=== PATIENT | male | born 1970 | race Hispanic/Latino ===

== ENCOUNTER 2017-04-30 23:40 | Inpatient (IN) | payer MEDICAID, OTHER ==
--- NOTE | 2017-05-01 00:13 | C.PDOC ---
History Of Present Illness 47 year old male presents to the ED as a transfer from [facility] for psychiatric admission. Patient has history of COPD. Patient has no complaints at this time. Chief Complaint (Nursing): Psychiatric Evaluation History Per: Patient History/Exam Limitations: no limitations Onset/Duration Of Symptoms: Hrs Current Symptoms Are (Timing): Still Present Involuntary Hold By: None Recent travel outside of the [place]: No Additional History Per: Patient Past Medical History Reviewed: Historical Data, Nursing Documentation, Vital Signs Vital Signs: Last Vital Signs Temp 98.1 F 04/30/17 23:44 Pulse 71 04/30/17 23:44 Resp 20 04/30/17 23:44 BP 143/70 04/30/17 23:44 Pulse Ox 97 05/01/17 00:22 - Medical History PMH: COPD, Rheumatoid Arthritis Surgical History: No Surg Hx Family History: States: Unknown Family Hx - Social History Hx Alcohol Use: No Hx Substance Use: Yes - Immunization History Hx Tetanus Toxoid Vaccination: No Hx Influenza Vaccination: No Hx Pneumococcal Vaccination: No Physical Exam - Physical Exam Appears: Non-toxic, No Acute Distress Skin: Normal Color, Warm, Dry Head: Atraumatic, Normacephalic Eye(s): bilateral: Normal Inspection Oral Mucosa: Moist Neck: Supple Chest: Symmetrical, No Deformity, No Tenderness Cardiovascular: Rhythm Regular, No Murmur Respiratory: No Decreased Breath Sounds, No Rales, No Rhonchi, Wheezing ( occasional ), Other (good air entry ) Gastrointestinal/Abdominal: Soft, No Tenderness, No Guarding, No Rebound Extremity: Normal ROM, Capillary Refill (less than 2 seconds ) Neurological/Psych: Oriented x3, Normal Speech, Normal Cognition Gait: Steady ED Course And Treatment O2 Sat by Pulse Oximetry: 97 (on RA) Pulse Ox Interpretation: Normal Disposition Discussed With : Brigid Rubio Doctor Will See Patient In The: Hospital Counseled Patient/Family Regarding: Diagnosis - Disposition Disposition: HOSPITALIZED Disposition Time: 00:12 Condition: STABLE Forms: [facility] (Tajik) - POA Present On Arrival: None - Clinical Impression Clinical Impression: Depressive disorder, Asthma - Scribe Statement The provider has reviewed the documentation as recorded by the Scribe (Blanca Beltran) Provider Attestation: All medical record entries made by the Scribe were at my direction and personally dictated by me. I have reviewed the chart and agree that the record accurately reflects my personal performance of the history, physical exam, medical decision making, and the department course for this patient. I have also personally directed, reviewed, and agree with the discharge instructions and disposition.
--- NOTE | 2017-05-01 01:24 | PCM.BM ---
<JeyOlena Garcia - Last Filed: 05/01/17 01:22> Treatment Plan Problems - Problems identified on initial assessmt Depression Date Initiated: 05/01/17 Time Initiated: 00:45 Assessment reference: NA Status: Active Treatment assets and liabiliti Patient Assests: cooperative, educated, ADL independent, negotiates basic needs Patient Liabilities: financial problems, poor support system, substance abuse, medical problems - Milieu Protocol Maintain good personal hygiene: daily Encourage regular showers, daily Remind patient to perform daily oral care, other Assist patient to perform ADL's (Self) Conduct patient checks and document Observation sheet: Q15 minutes Maintain personal safety: every shift Educate patient to report safety concerns to staff, every shift Monitor environment for contraband/sharps Medication safety: Monitor for expected outcome, potential side effects: every shift, Assess barriers to learning: every shift, Assess readiness for medication education: every shift <Lucy Espinal - Last Filed: 05/01/17 13:05> - Diagnosis (1) Depressive disorder Status: Acute Interventions: 05/01/17 13:06 * Assess/adjust medications daily and /or as needed * See patient on an individual basis 7x/week to assess symptoms of depression * Monitor for side effects & effectiveness of medications * (2) Opioid use disorder, severe, dependence Status: Acute Interventions: 05/01/17 13:07 * Assess 7x/week regarding severity of withdrawal * Educate regarding risks, benefits, side effects and alternatives of medications * Use Motivational Interviewing for abstinence * Use CBT for relapse prevention * Medication management for withdrawal symptoms * Encourage medication assisted treatment * <Boris Enriquez - Last Filed: 05/02/17 12:20> - Diagnosis (1) Major depressive disorder, recurrent severe without psychotic features Status: Acute Interventions: Assess/adjust medications daily and/or as needed SEE patient on him individual basis 7x/week to assess status of hallucinations. Discuss risks, benefits, side effects and alternatives of medications. 05/02/17 12:18 (2) YOUSUF (generalized anxiety disorder) Status: Acute Interventions: Assess/adjust medications daily and/or as needed SEE patient on him individual basis 7x/week to assess status of hallucinations. Discuss risks, benefits, side effects and alternatives of medications. 05/02/17 12:19 (3) Opiate dependence Status: Acute Interventions: Assess 7x/week regarding severity of withdrawal Educated regarding risks, benefits, side effects and alternatives of medications Used motivational interview for abstinence Used CBT for relapse prevention Medication management for withdrawal symptoms Encouraged medication assisted treatment 05/02/17 12:20 (4) Sedative, hypnotic or anxiolytic use disorder, severe, dependence Status: Acute Interventions: Assess 7x/week regarding severity of withdrawal Educated regarding risks, benefits, side effects and alternatives of medications Used motivational interview for abstinence Used CBT for relapse prevention Medication management for withdrawal symptoms Encouraged medication assisted treatment 05/02/17 12:20 (5) Cocaine use disorder, moderate, dependence Status: Acute Interventions: Assess 7x/week regarding severity of withdrawal Educated regarding risks, benefits, side effects and alternatives of medications Used motivational interview for abstinence Used CBT for relapse prevention Medication management for withdrawal symptoms Encouraged medication assisted treatment 05/02/17 12:21 <Miya Adorno - Last Filed: 05/05/17 13:45> Family Contact Family involvement: Famliy/SO not involved - Goals for Treatment Patient goals for treatment: "I want to go to rehab." Discharge/Continuing Care - Education Needs Education Needs: Patient Medication, Patient Coping Skills, Patient Placement options, Patient Community resources - Discharge Discharge Criteria: Tolerates medication w/o severe side effects, No longer exhibiting s/s of withdrawal, Reduction of target symptoms Discharge to:: Substance Abuse Rehab - Treatment Team Participation Discussed with Family/SO: No Was Patient/Family/SO present at Treatment Team Meeting: Yes
[2017-05-01] MEDS: Albuterol-Ipratrop 3 mg / 0.5 (3 ml) UD INH SCH ×3 (02:23→20:09)
[2017-05-01] MEDS: Multiple Vitamins Tab PO SCH (10:19)
--- NOTE | 2017-05-01 13:11 | PCM.PSYCH ---
Initial Psychiatric Evaluation - Initial Psychiatric Evaluation Type of Admission: Voluntary Legal Status: Capacity Chief Complaint (in patient's own words): "I'm depressed" History of Present Illness and Precipitating Events: The patient is seen, chart reviewed and case discussed. This is a 47-year-old male, single with one child who is 10 years old and lives with his mother. The patient is unemployed and homeless currently and his transferred from [facility]. He reports depressive symptoms, suicidal thoughts with a plan to OD on medications but he contracts for safety and increased to follow his safety plan. He will talk to the nurses if he feels overwhelmed. He also reports excessive anxiety, anhedonia, somewhat hopelessness and poor sleep/appetite. Patient admits to using 20 bags of intranasal heroin the last 7 years. He also uses intranasal or crack cocaine, occasional cigarettes, 30 mg of OxyContin but not every day. He denies alcohol use and other drug use. He has been abusing Xanax 3-4 mg but he also said he has a prescription for it. Currently he isn't obvious opioid withdrawal. He had been to detox and rehabilitation in the past but not much and he was on methadone 100 mg maintenance but it was stopped. Past psych history: No admissions but he overdosed intentionally on harrowing couple of times. Family psych history: Brother also uses heroin Medical history: Asthma, COPD, rheumatoid arthritis Current Medications: Active Medications Generic Name Dose Route Start Last Admin Trade Name Freq PRN Reason Stop Dose Admin Albuterol/Ipratropium 3 ml 05/01/17 02:00 05/01/17 12:04 Duoneb 3 Mg/0.5 Mg (3 Ml) Ud INH 05/02/17 10:00 Not Given RQ6 THOM Benztropine Mesylate 2 mg 05/01/17 00:18 Cogentin PO Q6 PRN Extra Pyramidal Symptoms Chlordiazepoxide 25 mg 05/01/17 12:00 05/01/17 12:08 Librium PO 05/05/17 11:59 25 mg Q6 THOM Administration Taper Clonidine HCl 0.1 mg 05/01/17 00:18 05/01/17 12:08 Catapres PO 0.1 mg Q8 PRN Administration COWS Score More or Equal to 5 Haloperidol 5 mg 05/01/17 00:26 Haldol PO Q8H PRN for severe agitation Haloperidol Lactate 5 mg 05/01/17 00:34 Haldol IM Q8 PRN Moderate Agitation Hydroxyzine HCl 25 mg 05/01/17 00:18 05/01/17 01:13 Atarax PO 25 mg Q6 PRN Administration Anxiety Ibuprofen 400 mg 05/01/17 00:38 05/01/17 01:13 Motrin Tab PO 400 mg Q6 PRN Administration Pain, moderate (4-7) Loperamide HCl 2 mg 05/01/17 00:38 05/01/17 01:13 Imodium PO 2 mg Q8 PRN Administration Diarrhea Methadone HCl 25 mg 05/01/17 09:45 05/01/17 10:18 Methadone PO 05/06/17 09:44 25 mg Q24H THOM Administration Taper Multivitamins 1 tab 05/01/17 10:00 05/01/17 10:19 Hexavitamin PO 1 tab DAILY THOM Administration Ondansetron HCl 4 mg 05/01/17 00:40 Zofran Tab PO Q8 PRN Nausea/Vomiting Ondansetron HCl 4 mg 05/01/17 00:42 Zofran Inj IVP Q6 PRN Nausea/Vomiting Pneumococcal Polyvalent Vaccine 0.5 ml 05/04/17 10:00 Pneumovax 23 Vaccine IM 05/04/17 10:01 .ONCE ONE Sertraline HCl 50 mg 05/01/17 10:00 05/01/17 12:10 Zoloft PO 50 mg DAILY THOM Administration Past Psychiatric History - Past Psychiatric History Previous Treatment History: None Pertinent Medical Hx (Current Medical&Sleep Prob, Allergies): Allergies Allergy/AdvReac Type Severity Reaction Status Date / Time No Known Allergies Allergy Verified 04/30/17 23:50 ALPRAZolam [Xanax] 1 mg PO TID 04/30/17 Albuterol 0.083% [Albuterol 0.083% Inhal Gabi (2.5 mg/3 ml) UD] 2.5 mg IH Q6 PRN 04/30/17 Albuterol HFA [Ventolin HFA 90 mcg/actuation (8 g)] 2 puff IH [id number] PRN Oxycodone HCl/Acetaminophen [Primlev 10-300 mg Tablet] 1 each PO TID 04/30/17 Review of Systems - Neurological Neurological: UNREMARKABLE - Psychiatric Psychiatric: Abnormal Sleep Pattern, Anhedonia, Anxiety, Behavioral Changes, Change in Appetite, Depression, Difficulty Concentrating, Irritability. absent : Hallucinations, Homicidal Ideation, Paranoia, Suicidal Ideation Mental Status Examination - Personal Presentation Personal Presentation: Looks stated age - Affect Affect: Constricted - Motor Activity Motor Activity: Calm - Reliability in Providing Information Reliability in Providing Information: Good - Speech Speech: Organized - Mood Mood: Depressed, Anxious - Formal Thought Process Formal Thought Process: No Impairment - Cognitive Functions Orientation: Person, Place, Situation, Time Sensorium: Alert Attention/Concentration: Attentive Estimate of Intelligence: Average Judgement: Intact, as evidence by: Insight regarding need for hospitalization Memory: Recent intact, as evidence by: Ability to recall events of the day, Remote intact, as evidenced by: Abilit to recall sig. life events DSM 5 DX - DSM 5 DSM 5 Diagnosis: Major depressive disorder, recurrent, severe, without psychosis YOUSUF Rule out personality disorder Opioid use disorder, severe Opioid withdrawal Cocaine use disorder, moderate Sedative, hypnotic or anxiolytic use disorder, severe RA Asthma COPD - Recommended/Plan of Treatment Treatment Recommendations and Plan of Treatment: Depression and YOUSUF Start Zoloft Attend groups and activities Individual therapy Psychoeducation and support Encourage compliance with meds and after care Refer to outpatient program Teach healthy lifestyle methods, i.e. diet, exercise, meditation Smoking cessation Opioids: Methadone detox As needed medications Gabapentin for augmentation Attend groups and activities Supportive therapy and psychoeducation IA for abstinence CBT for relapse prevention Encourage MAT Refer to rehab or IOP Attend self-help groups as well 34 min Projected ELOS: 5-6 days Prognosis: good w treatment - Smoking Cessation Smoking Cessation Initiated: Yes
[2017-05-02] MEDS: Albuterol-Ipratrop 3 mg / 0.5 (3 ml) UD INH SCH ×3 (02:05→10:36)
[2017-05-02] MEDS: Multiple Vitamins Tab PO SCH (10:34)
--- NOTE | 2017-05-02 12:24 | PCM.PYCHPN ---
Psychiatric Progress Note - Psychiatric Progress Note Patient seen today, length of contact: 15 minutes Patient Chief Complaint: I'm not feeling better. Problems Identified/Issues Discussed: Patient seen. Chart reviewed. Case discussed with the staff. Issues related to illness and treatment were discussed with the patient. Reported compliant with treatment with no adverse affects. Tolerating treatment very well. Reported not feeling much better. Patient got methadone 20 mg. Still requesting height dose of methadone. Education provided. At the time of evaluation, patient was awake alert oriented 3, had no delusions , no auditory or visual hallucinations, no suicidal ideations or homicidal ideations. Medical Problems: None reported Diagnostic Results: Reviewed DSM 5 Symptoms Update: Some improvement with treatment Medication Change: No Medical Record Reviewed: Yes Mental Status Examination - Cognitive Function Orientation: Person, Place, Situation, Time Memory: Intact Attention: WNL Concentration: WNL Association: WNL Fund of Knowledge: [facility] Decription of patient's judgement and insights: Fair - Mood Mood: Depressed - Affect Affect: Depressed - Speech Speech: Appropriate - Formal Thought Process Formal Thought Process: No Impairment Psychotic Thoughts and Behaviors: None - Suicidal Ideation Suicidal Ideation: No - Homicidal Ideation Homicidal Ideation: No Goal/Treatment Plan - Goal/Treatment Plan Need for Continued Stay: Remain at risks for inpatient hospitalization, Discharge may exacerbated symptoms, Severe functional impairment Progress Toward Problem(s) and Goals/Treatment Plan: Patient education Supportive therapy Continue treatment as before Motivation interview for abstinence CPT for relapse prevention Estimated Date of D/C: 05/08/17 - Smoking Cessation Smoking Cessation Initiated: No
[2017-05-03] MEDS: Multiple Vitamins Tab PO SCH (09:36)
[2017-05-03] MEDS: Albuterol-Ipratrop 3 mg / 0.5 (3 ml) UD INH SCH ×2 (09:39→20:14)
--- NOTE | 2017-05-03 20:40 | PCM.PYCHPN ---
Psychiatric Progress Note - Psychiatric Progress Note Patient seen today, length of contact: 15 minutes Patient Chief Complaint: I need methadone Problems Identified/Issues Discussed: Patient was seen. Chart was reviewed important content noted. Nurse input received. Patient is preoccupied with methadone and has drug seeking behavior. He was constantly asking more Methadone. He has psychosomatic complaints. He needs redirection multiple times. No events overnight. Patient slept well and is eating well. Pt needs to stay in hospital for stabilization of mood and detox of opioids. Pt still had opioid withdrawal symptoms, but not evident on observation. Denies suicidal or homicidal ideation. Patient does not report hallucinations. No delusions elicited. No paranoia elicited. Patient has remained in good clinical and behavioral control. Diagnostic Results: reviewed DSM 5 Symptoms Update: MDD Opioid use d/o Medication Change: Yes (methadone taper) Medical Record Reviewed: Yes Mental Status Examination - Cognitive Function Orientation: Person, Place, Situation, Time Memory: Intact Attention: WNL Concentration: WNL Association: WNL Fund of Knowledge: WNL - Mood Mood: Depressed - Affect Affect: Depressed - Speech Speech: Appropriate - Formal Thought Process Formal Thought Process: No Impairment - Suicidal Ideation Suicidal Ideation: No - Homicidal Ideation Homicidal Ideation: No Goal/Treatment Plan - Goal/Treatment Plan Need for Continued Stay: Remain at risks for inpatient hospitalization, Discharge may exacerbated symptoms, Severe functional impairment Progress Toward Problem(s) and Goals/Treatment Plan: Continue current management and medications. Methadone taper Attend groups and activities Individual therapy Patient educated about risks, benefits, side effects & alternatives of meds. Pt verbalized understanding & agreed with the above. Therapy in milieu. Estimated Date of D/C: 05/08/17
[2017-05-04] MEDS: Albuterol-Ipratrop 3 mg / 0.5 (3 ml) UD INH SCH ×4 (02:08→20:14)
[2017-05-04] MEDS ORDERED: Pneumococcal 23-Valent Vaccine IM ONE (10:00)
[2017-05-04] MEDS: Multiple Vitamins Tab PO SCH (10:07)
--- NOTE | 2017-05-04 18:54 | PCM.PYCHPN ---
Psychiatric Progress Note - Psychiatric Progress Note Patient seen today, length of contact: 15 minutes Patient Chief Complaint: I HAD DIFFICULTY IN SLEEP Problems Identified/Issues Discussed: Patient was seen. Chart was reviewed important content noted. Nurse input received. Patient is preoccupied with methadone and has drug seeking behavior. He was constantly asking more Methadone. He has psychosomatic complaints that he was not able to sleep last night. He needs redirection multiple times. No events overnight. Patient is eating well. Pt needs to stay in hospital for stabilization of mood and detox of opioids. Pt still had opioid withdrawal symptoms, but not evident on observation. Denies suicidal or homicidal ideation. Patient does not report hallucinations. No delusions elicited. No paranoia elicited. Patient has remained in good clinical and behavioral control. Diagnostic Results: reviewed Medication Change: Yes (methadone taper, and start Gabapentin 300 mg po BID) Medical Record Reviewed: Yes Mental Status Examination - Cognitive Function Orientation: Person, Place, Situation, Time Memory: Intact Attention: WNL Concentration: WNL Association: WNL Fund of Knowledge: WN Decription of patient's judgement and insights: limited/limited - Mood Mood: Depressed - Affect Affect: Constricted, Depressed - Speech Speech: Appropriate - Formal Thought Process Formal Thought Process: No Impairment Psychotic Thoughts and Behaviors: denied - Suicidal Ideation Suicidal Ideation: No - Homicidal Ideation Homicidal Ideation: No Goal/Treatment Plan - Goal/Treatment Plan Need for Continued Stay: Remain at risks for inpatient hospitalization, Discharge may exacerbated symptoms, Severe functional impairment Progress Toward Problem(s) and Goals/Treatment Plan: Continue current management and medications. Methadone taper Start Gabapentin 300 mg po BID Attend groups and activities Individual therapy Patient educated about risks, benefits, side effects & alternatives of meds. Pt verbalized understanding & agreed with the above. Therapy in milieu. Estimated Date of D/C: 05/08/17
[2017-05-05] MEDS: Albuterol-Ipratrop 3 mg / 0.5 (3 ml) UD INH SCH ×4 (02:08→20:18)
[2017-05-05] MEDS: Multiple Vitamins Tab PO SCH (09:06)
[2017-05-05 09:08] VITALS: O2SAT 99
--- NOTE | 2017-05-05 17:54 | PCM.PYCHPN ---
Psychiatric Progress Note - Psychiatric Progress Note Patient seen today, length of contact: 15 minutes Patient Chief Complaint: I'm not feeling better. I need more methadone. Problems Identified/Issues Discussed: Patient seen. Chart reviewed. Case discussed with the staff. Issues related to illness and treatment were discussed with the patient. Reported compliant with treatment with no adverse affects. Tolerating treatment very well. Reported not feeling much better. Patient's detox his done today, still wants more methadone. Apparently patient has no withdrawal symptoms. His vital signs are normal. Education provided about methadone and detox. Patient reported he is feeling depressed. Patient was educated that for depression he needs some other medications and not methadone but patient was insisting to get more methadone. [facility] the past [facility]. Now patient wants to go to a different program. Education and information provided about different programs during treatment team meeting. At the time of evaluation, patient was awake alert oriented 3, had no delusions , no auditory or visual hallucinations, no suicidal ideations or homicidal ideations. Medical Problems: None reported Diagnostic Results: Reviewed DSM 5 Symptoms Update: Improvement with treatment Medication Change: No Medical Record Reviewed: Yes Mental Status Examination - Cognitive Function Orientation: Person, Place, Situation, Time Memory: Intact Attention: WNL Concentration: WNL Association: [facility] Fund of Knowledge: [facility] Decription of patient's judgement and insights: Poor - Mood Mood: Other (Angry) - Affect Affect: Other (Appropriate) - Speech Speech: Appropriate - Formal Thought Process Formal Thought Process: No Impairment Psychotic Thoughts and Behaviors: None - Suicidal Ideation Suicidal Ideation: No - Homicidal Ideation Homicidal Ideation: No Goal/Treatment Plan - Goal/Treatment Plan Need for Continued Stay: Remain at risks for inpatient hospitalization, Discharge may exacerbated symptoms, Severe functional impairment Progress Toward Problem(s) and Goals/Treatment Plan: Patient education Supportive therapy Continue treatment as before Motivation interview for abstinence CPT for relapse prevention Estimated Date of D/C: 05/08/17 - Smoking Cessation Smoking Cessation Initiated: No
[2017-05-06] MEDS: Albuterol-Ipratrop 3 mg / 0.5 (3 ml) UD INH SCH ×3 (02:00→14:36)
[2017-05-06] MEDS: Albuterol HFA 90 mcg/actuation (8 g) INH PRN (07:25)
[2017-05-06] MEDS: Multiple Vitamins Tab PO SCH (09:11)
--- NOTE | 2017-05-06 14:50 | PCM.PYCHPN ---
Psychiatric Progress Note - Psychiatric Progress Note Patient seen today, length of contact: 15 minutes Patient Chief Complaint: I'm feeling little better. Can you refer me to a methadone clinic in [facility]. Problems Identified/Issues Discussed: Patient seen. Chart reviewed. Case discussed with the staff. Issues related to illness and treatment were discussed with the patient. Reported compliant with treatment with no adverse affects. Tolerating treatment very well. reported feeling little better. Today patient asked for referral to on methadone clinic in [facility]. Patient lives there. We will refer the patient to a methadone clinic. In the past patient was in [facility]. Now patient wants to go to a different program. At the time of evaluation, patient was awake alert oriented 3, had no delusions , no auditory or visual hallucinations, no suicidal ideations or homicidal ideations. Medical Problems: None reported Diagnostic Results: Reviewed DSM 5 Symptoms Update: Improving with treatment Medication Change: No Medical Record Reviewed: Yes Mental Status Examination - Cognitive Function Orientation: Person, Place, Situation, Time Memory: Intact Attention: WNL Concentration: WNL Association: WNL Fund of Knowledge: WN Decription of patient's judgement and insights: Poor - Mood Mood: Depressed (less than before) - Affect Affect: Other (Appropriate) - Speech Speech: Appropriate - Formal Thought Process Formal Thought Process: No Impairment Psychotic Thoughts and Behaviors: None - Suicidal Ideation Suicidal Ideation: No - Homicidal Ideation Homicidal Ideation: No Goal/Treatment Plan - Goal/Treatment Plan Need for Continued Stay: Remain at risks for inpatient hospitalization, Discharge may exacerbated symptoms, Severe functional impairment Progress Toward Problem(s) and Goals/Treatment Plan: Patient education Supportive therapy Continue treatment as before Motivation interview for abstinence CBT for relapse prevention Estimated Date of D/C: 05/08/17 - Smoking Cessation Smoking Cessation Initiated: No
[2017-05-07] MEDS: Albuterol-Ipratrop 3 mg / 0.5 (3 ml) UD INH SCH ×3 (08:10→21:00)
[2017-05-07] MEDS: Multiple Vitamins Tab PO SCH (09:09)
[2017-05-07] MEDS: Albuterol HFA 90 mcg/actuation (8 g) INH PRN (09:11)
[2017-05-07 10:29] VITALS: RESP 20
--- NOTE | 2017-05-07 13:27 | PCM.PYCHPN ---
Psychiatric Progress Note - Psychiatric Progress Note Patient seen today, length of contact: 15 minutes Patient Chief Complaint: I'm feeling little better. I still wants to go to methadone clinic in [facility]. Problems Identified/Issues Discussed: Patient seen. Chart reviewed. Case discussed with the staff. Issues related to illness and treatment were discussed with the patient. Reported compliant with treatment with no adverse affects. Tolerating treatment very well. Patient reported feeling better. Still wants to go to methadone clinic. [facility] the [facility]. Now patient wants to go to a different program. At the time of evaluation, patient was awake alert oriented 3, had no delusions , no auditory or visual hallucinations, no suicidal ideations or homicidal ideations. Medical Problems: None reported Diagnostic Results: Reviewed DSM 5 Symptoms Update: Improving with treatment Medication Change: No Medical Record Reviewed: Yes Mental Status Examination - Cognitive Function Orientation: Person, Place, Situation, Time Memory: Intact Attention: WNL Concentration: WNL Association: WNL Fund of Knowledge: WN Decription of patient's judgement and insights: Poor - Mood Mood: Depressed (Much less than before) - Affect Affect: Other (Appropriate) - Speech Speech: Appropriate - Formal Thought Process Formal Thought Process: No Impairment Psychotic Thoughts and Behaviors: None - Suicidal Ideation Suicidal Ideation: No - Homicidal Ideation Homicidal Ideation: No Goal/Treatment Plan - Goal/Treatment Plan Need for Continued Stay: Remain at risks for inpatient hospitalization, Discharge may exacerbated symptoms, Severe functional impairment Progress Toward Problem(s) and Goals/Treatment Plan: Patient education Supportive therapy Continue treatment as before Motivation interview for abstinence CBT for relapse prevention Estimated Date of D/C: 05/08/17 - Smoking Cessation Smoking Cessation Initiated: No
[2017-05-08] MEDS: Albuterol-Ipratrop 3 mg / 0.5 (3 ml) UD INH SCH ×2 (02:13→08:19)
[2017-05-08] MEDS: Multiple Vitamins Tab PO SCH (09:18)
[2017-05-08 10:18] VITALS: BP 123/72; PULSE 97; TEMP 97.8
--- NOTE | 2017-05-08 13:09 | PCM.PYCHDC ---
Mental Status Examination - Mental Status Examination Orientation: Person, Place, Situation, Time Memory: Intact Mood: Neutral Affect: Other (Appropriate) Speech: Appropriate Attention: WNL Concentration: WNL Association: WNL Fund of Knowledge: WNL Formal Thought Process: No Impairment Description of patient's judgement and insight: Fair Psychotic Thoughts and Behaviors: None Suicidal Ideation: No Current Homicidal Ideation?: No Discharge Summary - Discharge Note Reason for Hospitalization: Depression, YOUSUF Opiate use disorder Cocaine use disorder Integrated use disorder Laboratory Data: Reviewed Consultations:: List each consultation separately and include: 1. Reason for request. 2. Findings. 3. Follow-up Summary of Hospital Course include:: 1. Description of specific treatment plan utilized for patients during their course of treatmen. 2. Summarize the time- course for resolution of acute symptoms and/or regressed behaviors. 3. Describe issues identified and worked on during hospitalization. 4. Describe medication utilized. 5. Describe medical problems identified and treated. 6. Reassessment of suicide risk Summary of Hospital Course: The patient is seen, chart reviewed and case discussed. This is a 47-year-old male, single with one child who is 10 years old and lives with his mother. The patient is unemployed and homeless currently and his transferred from [facility]. He reports depressive symptoms, suicidal thoughts with a plan to OD on medications but he contracts for safety and increased to follow his safety plan. He will talk to the nurses if he feels overwhelmed. He also reports excessive anxiety, anhedonia, somewhat hopelessness and poor sleep/appetite. Patient admits to using 20 bags of intranasal heroin the last 7 years. He also uses intranasal or crack cocaine, occasional cigarettes, 30 mg of OxyContin but not every day. He denies alcohol use and other drug use. He has been abusing Xanax 3-4 mg but he also said he has a prescription for it. Currently he isn't obvious opioid withdrawal. He had been to detox and rehabilitation in the past but not much and he was on methadone 100 mg maintenance but it was stopped. Past psych history: No admissions but he overdosed intentionally on harrowing couple of times. Family psych history: Brother also uses heroin Medical history: Asthma, COPD, rheumatoid arthritis During his stay in the hospital patient was treated with methadone taper, gabapentin, sertraline and other when necessary medications. Patient was attending groups and other activities on the unit. With the above treatment patient started feeling better. Had no withdrawal symptoms. Today patient was stable and ready for discharge. At the time of evaluation and discharge, patient was awake alert oriented 3, had no delusions, no auditory or visual hallucinations, no suicidal ideations or homicidal ideations. Patient was discharged in a stable condition. Patient will go to all methadone maintenance treatment program [facility]. - Diagnosis (1) Major depressive disorder, recurrent severe without psychotic features Status: Acute (2) YOUSUF (generalized anxiety disorder) Status: Acute (3) Opiate dependence Status: Acute (4) Sedative, hypnotic or anxiolytic use disorder, severe, dependence Status: Acute (5) Cocaine use disorder, moderate, dependence Status: Acute - Final Diagnosis (DSM 5) Condition upon Discharge: STABLE Disposition: HOME/ ROUTINE Follow-up Treatment Plan: Methadone maintenance treatment program in [facility] Prescriptions/Medication Reconciliation: Benztropine [Cogentin] 2 mg PO HS PRN #30 tab PRN Reason: Extra Pyramidal Symptoms Gabapentin [Neurontin] 300 mg PO BID #60 cap Sertraline [Zoloft] 200 mg PO DAILY #60 tab - Smoking Cessation Smoking Cessation Medication prescribed: No - Antipsychotic Medications Pt discharged on 2 or more routine antipsychotic medications: No
== END 2017-05-08 11:45 | disposition home or self-care (01) | DRG 430 ==
LOC: C.ER 23:40 → C.5E 05-01 00:20
PROVIDERS: ADMIT Psychiatry & Neurology Psychiatry; ATTEND Psychiatry & Neurology Psychiatry
DX: F33.2 Major depressive disorder, recurrent severe without psychotic features (principal); F11.23 Opioid dependence with withdrawal; J44.9 Chronic obstructive pulmonary disease, unspecified; F14.10 Cocaine abuse, uncomplicated; F41.1 Generalized anxiety disorder; F17.210 Nicotine dependence, cigarettes, uncomplicated; M06.9 Rheumatoid arthritis, unspecified; Z59.0 Homelessness; F19.10 Other psychoactive substance abuse, uncomplicated

== ENCOUNTER 2017-10-28 23:25 | Inpatient (IN) | payer MEDICAID, OTHER ==
--- NOTE | 2017-10-29 00:02 | C.PDOC ---
History Of Present Illness 47 y/o male presents via EMS for psych transfer from [facility]. Patient was already accepted under the service of Dr. Estrella earlier today. Pre-screened by this MD. On arrival patient appears awake and alert, cooperative. Time Seen by Provider: 10/28/17 23:59 Chief Complaint (Nursing): Psychiatric Evaluation History Per: Patient History/Exam Limitations: no limitations Additional History Per: Prior Records Past Medical History Reviewed: Historical Data, Nursing Documentation, Vital Signs Vital Signs: Last Vital Signs Temp 98.1 F 10/28/17 23:36 Pulse 79 10/28/17 23:36 Resp 22 10/28/17 23:36 BP 112/74 10/28/17 23:36 Pulse Ox 95 10/29/17 00:02 - Medical History PMH: COPD, Rheumatoid Arthritis Other Surgeries: left knee meniscus repair Family History: States: Unknown Family Hx - Social History Hx Tobacco Use: Yes Hx Alcohol Use: No Hx Substance Use: Yes - Immunization History Hx Tetanus Toxoid Vaccination: No Hx Influenza Vaccination: No Hx Pneumococcal Vaccination: No Review Of Systems Except As Marked, All Systems Reviewed And Found Negative. Constitutional: Negative for: Fever Respiratory: Negative for: Shortness of Breath Physical Exam - Physical Exam Appears: No Acute Distress, Other (Calm and cooperative) Skin: Warm, Dry Head: Atraumatic, Normacephalic Eye(s): bilateral: Normal Inspection, PERRL, EOMI Neck: Normal ROM Chest: Symmetrical Cardiovascular: Rhythm Regular, No Murmur Respiratory: Normal Breath Sounds, No Rales, No Rhonchi, No Wheezing Gastrointestinal/Abdominal: Soft, No Tenderness, No Distention Extremity: Bilateral: Atraumatic, Normal Color And Temperature, Normal ROM Neurological/Psych: Oriented x3, Normal Speech ED Course And Treatment O2 Sat by Pulse Oximetry: 95 (RA) Pulse Ox Interpretation: Normal Medical Decision Making Medical Decision Making: psych transfer, pre-approved by this (outside paperwork) and Dr. Estrella stable pt, cooperative, calm. pt already cleared for psychiatric admission Disposition Doctor Will See Patient In The: Hospital Counseled Patient/Family Regarding: Studies Performed, Diagnosis - Disposition Disposition: HOSPITALIZED Disposition Time: 00:02 Condition: GOOD - Clinical Impression Clinical Impression: Opioid use disorder, severe, dependence, Depressive disorder - Scribe Statement The provider has reviewed the documentation as recorded by the Scribe (Blanka Worley) Provider Attestation: All medical record entries made by the Scribe were at my direction and personally dictated by me. I have reviewed the chart and agree that the record accurately reflects my personal performance of the history, physical exam, medical decision making, and the department course for this patient. I have also personally directed, reviewed, and agree with the discharge instructions and disposition.
--- NOTE | 2017-10-29 00:38 | PCM.BM ---
<Jaspal Rutherford - Last Filed: 10/29/17 00:36> Treatment Plan Problems - Problems identified on initial assessmt Depression Date Initiated: 10/29/17 Time Initiated: 00:15 Assessment reference: NA Status: Active Suicidal Ideation Date Initiated: 10/29/17 Time Initiated: 00:15 Assessment reference: NA Status: Active Substance Abuse Date Initiated: 10/29/17 Time Initiated: 00:15 Assessment reference: NA Status: Active Treatment assets and liabiliti Patient Assests: adapts well, cooperative, educated, self-reliant, ADL independent, negotiates basic needs, cognitively intact Patient Liabilities: physical pain, financial problems, poor support system, relationship conflicts, substance abuse, medical problems, legal issue - Milieu Protocol Maintain good personal hygiene: daily Encourage regular showers, daily Remind patient to perform daily oral care, daily Assist patient to perform ADL's Maintain personal safety: every shift Educate patient to report safety concerns to staff, every shift Monitor environment for contraband/sharps Medication safety: Monitor for expected outcome, potential side effects: every shift, Assess barriers to learning: every shift, Assess readiness for medication education: every shift <Lucy Espinal - Last Filed: 10/29/17 22:59> - Diagnosis (1) Opioid use disorder, severe, dependence Status: Acute Interventions: 10/29/17 23:00 * Assess 7x/week regarding severity of withdrawal * Educate regarding risks, benefits, side effects and alternatives of medications * Use Motivational Interviewing for abstinence * Use CBT for relapse prevention * Medication management for withdrawal symptoms * Encourage medication assisted treatment * (2) Major depressive disorder, recurrent severe without psychotic features Status: Acute Interventions: 10/29/17 23:00 * Assess/adjust medications daily and /or as needed * See patient on an individual basis 7x/week to assess symptoms of depression * Monitor for side effects & effectiveness of medications * (3) Sedative, hypnotic or anxiolytic use disorder, severe, dependence Status: Acute Interventions: 10/29/17 23:00 * Assess 7x/week regarding severity of withdrawal * Educate regarding risks, benefits, side effects and alternatives of medications * Use Motivational Interviewing for abstinence * Use CBT for relapse prevention * Medication management for withdrawal symptoms * Encourage medication assisted treatment * <Thu Langley - Last Filed: 04/21/18 09:55> Family Contact Family involvement: Patient does not wish Family/SO involvement Family contact: Patient declines to allow family contact at present - Goals for Treatment Patient goals for treatment: " I need help with housing due to being homeless." Discharge/Continuing Care - Education Needs Education Needs: Patient Medication, Patient Diagnosis/Disease Process, Patient Coping Skills, Patient Placement options, Patient Community resources, Patient Aftercare Safety Plan - Discharge Discharge Criteria: Free of Suicidal thoughts, Normal sleep pattern, Ability to care for self, No longer exhibiting s/s of withdrawal, Reduction of target symptoms Discharge to:: Longterm, Substance Abuse Rehab - Treatment Team Participation Discussed with Family/SO: No Was Patient/Family/SO present at Treatment Team Meeting: Yes
[2017-10-29] MEDS: Albuterol HFA 90 mcg/actuation (8 g) IH PRN (10:41)
--- NOTE | 2017-10-29 14:19 | PCM.PSYCH ---
Initial Psychiatric Evaluation - Initial Psychiatric Evaluation Type of Admission: Voluntary Legal Status: Capacity Chief Complaint (in patient's own words): "I feel depressed." History of Present Illness and Precipitating Events: This is a 47 year old single male who was transferred from [place]. Patient presented to the ED due to depression and suicidal ideation. patient states he has a plan to jump in front of a train. He states he has been thinking about this plan for a while. Patient states he has been depressed for five years or more. he denies hallucinations or feelings of paranoia. Patient admits to using heroin recently; he uses 20 bags. He states he is prescribe oxycodone 10mg for chronic pain but left his pills at his brother's place and is unable to get them. According to patient, he is also prescribed Xanax 1mg TID for generalized anxiety disorder. Patient denied any other substance use. Patient denies alcohol consumption. Patient smokes cigarettes on and off. Patient has a history of previous psychiatric hospitalizations. He was previously hospitalized at [facility] for depression and suicidal ideation in April 2017. He states he is treated by his primary care doctor for Generalized Anxiety Disorder as well. Medical history: Rheumatoid Arthritis, COPD Psych history: YOUSUF, MDD Family history: Pt denies but previous chart states his brother has history of opioid use disorder. Current Medications: Active Medications Generic Name Dose Route Start Last Admin Trade Name Freq PRN Reason Stop Dose Admin Acetaminophen 650 mg 10/29/17 00:46 Tylenol 325mg Tab PO Q6 PRN Fever >100.4 F Albuterol 2 puff 10/29/17 00:46 10/29/17 10:41 Ventolin Hfa 90 Mcg/Actuation (8 G) IH 2 2 RQ6 PRN Administration Wheezing Albuterol/Ipratropium 3 ml 10/29/17 10:38 Duoneb 3 Mg/0.5 Mg (3 Ml) Ud INH RQ4 PRN SOB Benztropine Mesylate 2 mg 10/29/17 00:46 Cogentin PO Q6 PRN Extra Pyramidal Symptoms Chlordiazepoxide 25 mg 10/29/17 12:00 10/29/17 11:48 Librium PO 11/03/17 11:59 25 mg Q6H THOM Administration Taper Chlordiazepoxide 25 mg 10/29/17 10:41 Librium PO Q4H PRN Alcohol Withdrawal Clonidine HCl 0.1 mg 10/29/17 10:41 Catapres PO Q4H PRN Symptoms of alcohol withdrawl Diphenhydramine HCl 50 mg 10/29/17 00:46 Benadryl PO Q6 PRN Extra Pyramidal Symptoms Escitalopram Oxalate 10 mg 10/29/17 10:45 10/29/17 11:48 Lexapro PO 10 mg DAILY THOM Administration Gabapentin 300 mg 10/29/17 10:45 10/29/17 11:48 Neurontin PO 300 mg BID THOM Administration Haloperidol 5 mg 10/29/17 00:46 Haldol PO Q8 PRN Moderate Agitation Hydroxyzine HCl 25 mg 10/29/17 00:47 Atarax PO Q6 PRN Anxiety Pneumococcal Polyvalent Vaccine 0.5 ml 10/30/17 10:00 Pneumovax 23 Vaccine IM 10/30/17 10:01 .ONCE ONE Prednisone 10 mg 10/29/17 10:38 10/29/17 13:10 Prednisone Tab PO 10 mg DAILY PRN Administration severe SOB Trazodone HCl 50 mg 10/29/17 01:01 Desyrel PO HS THOM Past Psychiatric History - Past Psychiatric History Previous Treatment History: Inpatient At [facility] hospital: [facility] Date: 05/01/17 Duration: 7 days Nature of Treatment: Depression Pertinent Medical Hx (Current Medical&Sleep Prob, Allergies): Allergies Allergy/AdvReac Type Severity Reaction Status Date / Time No Known Allergies Allergy Verified 10/28/17 23:44 Albuterol HFA [Ventolin HFA 90 mcg/actuation (8 g)] 2 puff IH [id number] PRN ALPRAZolam [Xanax] 1 mg PO TID PRN 10/28/17 oxyCODONE [oxyCONTIN] 10 mg PO QID PRN 10/28/17 Review of Systems - Review of Systems All systems: reviewed and no additional remarkable complaints except - Psychiatric Psychiatric: Depression, Hopelessness, Suicidal Ideation. absent: Auditory Hallucinations, Hallucinations, Paranoia, Visual Hallucinations Mental Status Examination - Personal Presentation Personal Presentation: Looks older than stated age - Affect Affect: Flat - Motor Activity Motor Activity: Calm - Reliability in Providing Information Reliability in Providing Information: Fair - Speech Speech: Organized - Mood Mood: Depressed - Formal Thought Process Formal Thought Process: No Impairment - Obsessions/Compulsions Obsessions: No Compulsions: No - Cognitive Functions Orientation: Person, Place, Situation, Time Sensorium: Alert Attention/Concentration: Attentive Abstract Thinking: [place] Estimate of Intelligence: Average Judgement: Intact, as evidence by: Insight regarding need for hospitalization Memory: Recent intact, as evidence by: Ability to recall events of the day - Risk Risk: Suicidal - Limitations Limitations: Living alone DSM 5 DX - DSM 5 DSM 5 Diagnosis: Major Depressive Disorder, recurrent Opioid Use Disorder, severe Opioid withdrawal Hypnotic sedative use disorder, severe hypnotic sedative withdrawal - Recommended/Plan of Treatment Treatment Recommendations and Plan of Treatment: Start Lexapro 10mg for Depression Start Methadone Taper for Opioid Use Disorder Start Librium Taper for Hypnotic Sedative Use Disorder All risks, benefits and alternatives of the meds discussed, and the pt agreed and understood. Attend groups and activities Individual therapy daily Psychoeducation and support daily Encourage compliance with meds and after care Refer to outpatient program Teach healthy lifestyle methods, i.e. diet, exercise, meditation Smoking cessation and patch 32 min
[2017-10-29] MEDS: Albuterol-Ipratrop 3 mg / 0.5 (3 ml) UD INH PRN (17:56)
[2017-10-30] MEDS: Albuterol HFA 90 mcg/actuation (8 g) IH PRN (08:28)
[2017-10-30] MEDS ORDERED: Pneumococcal 23-Valent Vaccine IM ONE (10:00)
--- NOTE | 2017-10-30 11:53 | PCM.PYCHPN ---
Psychiatric Progress Note - Psychiatric Progress Note Patient seen today, length of contact: 18 minutes Patient Chief Complaint: "I feel anxious." Problems Identified/Issues Discussed: The pt is seen, chart reviewed, case discussed with staff. Patient states he felt very anxious last night and was pacing the floors. He states he slept okay. Support given, CBT and LA used briefly Risks of benzos discussed, and MMTP recommended for maintenance. No new symptoms reported, improving slowly and needs more time No SEs from medications, risks discussed. Medication Change: Yes (Librium and Methadone Taper) Medical Record Reviewed: Yes Mental Status Examination - Cognitive Function Orientation: Person, Place, Situation, Time Memory: Intact Attention: Poor Concentration: Poor Association: WNL Fund of Knowledge: WNL - Mood Mood: Depressed - Affect Affect: Constricted - Speech Speech: Soft - Formal Thought Process Formal Thought Process: No Impairment - Suicidal Ideation Suicidal Ideation: No - Homicidal Ideation Homicidal Ideation: No Goal/Treatment Plan - Goal/Treatment Plan Need for Continued Stay: Severe depression anxiety, Discharge may exacerbated symptoms, Severe functional impairment Progress Toward Problem(s) and Goals/Treatment Plan: Continue Lexapro 10mg for Depression, dose to be increased Continue Methadone taper for Opioid Use Disorder 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
[2017-10-30] MEDS: Albuterol-Ipratrop 3 mg / 0.5 (3 ml) UD INH PRN (19:10)
[2017-10-31] MEDS: Albuterol HFA 90 mcg/actuation (8 g) IH PRN ×2 (06:38→09:13)
--- NOTE | 2017-10-31 12:53 | PCM.PYCHPN ---
Psychiatric Progress Note - Psychiatric Progress Note Patient seen today, length of contact: 18 minutes Patient Chief Complaint: "I feel anxious." Problems Identified/Issues Discussed: The pt is seen, chart reviewed, case discussed with staff. Support given, CBT and TX used briefly No new symptoms reported, improving slowly and needs more time No SEs from medications, risks discussed. After care discussed with him and his SW and he is open to going to rehab and sounds like his heart is into get on disability and not do much Medication Change: Yes (Librium and Methadone Taper) Medical Record Reviewed: Yes Mental Status Examination - Cognitive Function Orientation: Person, Place, Situation, Time Memory: Intact Attention: Poor Concentration: Poor Association: WNL Fund of Knowledge: WNL - Mood Mood: Depressed - Affect Affect: Constricted - Speech Speech: Soft - Formal Thought Process Formal Thought Process: No Impairment - Suicidal Ideation Suicidal Ideation: No - Homicidal Ideation Homicidal Ideation: No Goal/Treatment Plan - Goal/Treatment Plan Need for Continued Stay: Severe depression anxiety, Discharge may exacerbated symptoms, Severe functional impairment Progress Toward Problem(s) and Goals/Treatment Plan: Continue Lexapro for depression, dose to be increased Continue Methadone taper for opioid Use Disorder 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
[2017-11-01] MEDS: Albuterol HFA 90 mcg/actuation (8 g) IH PRN ×2 (09:34→17:58)
[2017-11-02] MEDS: Albuterol HFA 90 mcg/actuation (8 g) IH PRN (05:28)
--- NOTE | 2017-11-02 20:49 | PCM.PYCHPN ---
Psychiatric Progress Note - Psychiatric Progress Note Patient seen today, length of contact: 15 min Patient Chief Complaint: "I don't know - worried" Problems Identified/Issues Discussed: The pt is seen, chart reviewed, case discussed with staff. Support given, CBT and DE used briefly After care discussed Better than before Medication Change: Yes (Librium and Methadone Taper) Medical Record Reviewed: Yes Mental Status Examination - Cognitive Function Orientation: Person, Place, Situation, Time Memory: Intact Attention: Poor Concentration: Poor Association: WNL Fund of Knowledge: WNL - Mood Mood: Depressed - Affect Affect: Constricted - Speech Speech: Soft - Formal Thought Process Formal Thought Process: No Impairment - Suicidal Ideation Suicidal Ideation: No - Homicidal Ideation Homicidal Ideation: No Goal/Treatment Plan - Goal/Treatment Plan Need for Continued Stay: Severe depression anxiety, Discharge may exacerbated symptoms, Severe functional impairment Progress Toward Problem(s) and Goals/Treatment Plan: Continue Lexapro for depression Continue Methadone taper for opioid Use Disorder 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
--- NOTE | 2017-11-03 06:20 | PCM.PYCHPN ---
Psychiatric Progress Note - Psychiatric Progress Note Patient seen today, length of contact: 15 min Patient Chief Complaint: "Getting better" Problems Identified/Issues Discussed: The pt is seen, chart reviewed, case discussed with staff. Support given, CBT and NC used briefly No new symptoms reported, improving slowly and needs more time No SEs from medications, risks discussed. After care discussed - trying to get into a rehab Medication Change: Yes (Librium and Methadone Taper) Medical Record Reviewed: Yes Mental Status Examination - Cognitive Function Orientation: Person, Place, Situation, Time Memory: Intact Attention: Poor Concentration: Poor Association: WNL Fund of Knowledge: WNL - Mood Mood: Depressed - Affect Affect: Constricted - Speech Speech: Soft - Formal Thought Process Formal Thought Process: No Impairment - Suicidal Ideation Suicidal Ideation: No - Homicidal Ideation Homicidal Ideation: No Goal/Treatment Plan - Goal/Treatment Plan Need for Continued Stay: Severe depression anxiety, Discharge may exacerbated symptoms, Severe functional impairment Progress Toward Problem(s) and Goals/Treatment Plan: Continue Lexapro for depression Continue Methadone taper for opioid Use Disorder 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
--- NOTE | 2017-11-03 13:59 | PCM.PYCHPN ---
Psychiatric Progress Note - Psychiatric Progress Note Patient seen today, length of contact: 15 min Patient Chief Complaint: "OK" Problems Identified/Issues Discussed: The pt is seen, chart reviewed, case discussed with staff. Support given, CBT and [place] used briefly No new symptoms reported, improving slowly and needs more time No SEs from medications, risks discussed. After care discussed - applying rehabs Medication Change: Yes (Librium and Methadone Taper) Medical Record Reviewed: Yes Mental Status Examination - Cognitive Function Orientation: Person, Place, Situation, Time Memory: Intact Attention: Poor Concentration: Poor Association: WNL Fund of Knowledge: WNL - Mood Mood: Depressed - Affect Affect: Constricted - Speech Speech: Soft - Formal Thought Process Formal Thought Process: No Impairment - Suicidal Ideation Suicidal Ideation: No - Homicidal Ideation Homicidal Ideation: No Goal/Treatment Plan - Goal/Treatment Plan Need for Continued Stay: Severe depression anxiety, Discharge may exacerbated symptoms, Severe functional impairment Progress Toward Problem(s) and Goals/Treatment Plan: Continue Lexapro for depression Continue Methadone taper for opioid Use Disorder 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
[2017-11-03] MEDS: Albuterol HFA 90 mcg/actuation (8 g) IH PRN (21:21)
[2017-11-04] MEDS: Albuterol HFA 90 mcg/actuation (8 g) IH PRN ×2 (06:07→22:20)
--- NOTE | 2017-11-04 14:32 | PCM.PYCHPN ---
Psychiatric Progress Note - Psychiatric Progress Note Patient seen today, length of contact: 15 min Patient Chief Complaint: "My breathing was bad" Problems Identified/Issues Discussed: The pt is seen, chart reviewed, case discussed with staff. The pt is compliant with medications and reports no side-effects. Symptoms are improving but needs more time to stabilize. After care discussed, support and psychoeducation given. He is getting closer to d/c Medication Change: No Medical Record Reviewed: Yes Mental Status Examination - Cognitive Function Orientation: Person, Place, Situation, Time Memory: Intact Attention: Poor Concentration: Poor Association: WNL Fund of Knowledge: WNL - Mood Mood: Depressed - Affect Affect: Constricted - Speech Speech: Soft - Formal Thought Process Formal Thought Process: No Impairment - Suicidal Ideation Suicidal Ideation: No - Homicidal Ideation Homicidal Ideation: No Goal/Treatment Plan - Goal/Treatment Plan Need for Continued Stay: Severe depression anxiety, Discharge may exacerbated symptoms, Severe functional impairment Progress Toward Problem(s) and Goals/Treatment Plan: Continue Lexapro for depression Continue Methadone taper for opioid Use Disorder 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
[2017-11-05] MEDS: Albuterol HFA 90 mcg/actuation (8 g) IH PRN (10:04)
--- NOTE | 2017-11-05 11:46 | PCM.PYCHPN ---
Psychiatric Progress Note - Psychiatric Progress Note Patient seen today, length of contact: 18 min Patient Chief Complaint: "I'm feeling better" Problems Identified/Issues Discussed: The pt is seen, chart reviewed, case discussed with staff. Support given, CBT and [place] used briefly No new symptoms reported, improving slowly and needs more time No SEs from medications, risks discussed. After care discussed, applying to programs Medication Change: No Medical Record Reviewed: Yes Mental Status Examination - Cognitive Function Orientation: Person, Place, Situation, Time Memory: Intact Attention: Poor Concentration: Poor Association: WNL Fund of Knowledge: WNL - Mood Mood: Depressed - Affect Affect: Constricted - Speech Speech: Soft - Formal Thought Process Formal Thought Process: No Impairment - Suicidal Ideation Suicidal Ideation: No - Homicidal Ideation Homicidal Ideation: No Goal/Treatment Plan - Goal/Treatment Plan Need for Continued Stay: Severe depression anxiety, Discharge may exacerbated symptoms, Severe functional impairment Progress Toward Problem(s) and Goals/Treatment Plan: Continue Lexapro for depression Continue Methadone taper for opioid Use Disorder 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
[2017-11-05] MEDS: Albuterol-Ipratrop 3 mg / 0.5 (3 ml) UD INH PRN (18:25)
[2017-11-06] MEDS: Albuterol HFA 90 mcg/actuation (8 g) IH PRN ×2 (09:46→18:10)
--- NOTE | 2017-11-06 14:12 | PCM.PYCHPN ---
Psychiatric Progress Note - Psychiatric Progress Note Patient seen today, length of contact: 15 min Patient Chief Complaint: "I'm ok" Problems Identified/Issues Discussed: Continue medications Support and psychoeducation daily Attend groups and activities daily After care planning by SW, patient interested in applying to [facility] Patient had depressed mood, stated he was worried about living on the [address] after leaving [facility] Medication Change: No Medical Record Reviewed: Yes Mental Status Examination - Cognitive Function Orientation: Person, Place, Situation, Time Memory: Intact Attention: Poor Concentration: Poor Association: WNL Fund of Knowledge: WNL - Mood Mood: Depressed - Affect Affect: Constricted - Speech Speech: Soft - Formal Thought Process Formal Thought Process: No Impairment - Suicidal Ideation Suicidal Ideation: No - Homicidal Ideation Homicidal Ideation: No Goal/Treatment Plan - Goal/Treatment Plan Need for Continued Stay: Severe depression anxiety, Discharge may exacerbated symptoms, Severe functional impairment Progress Toward Problem(s) and Goals/Treatment Plan: Continue Lexapro for depression Continue Methadone taper for opioid Use Disorder 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
[2017-11-07] MEDS: Albuterol HFA 90 mcg/actuation (8 g) IH PRN ×2 (10:27→22:21)
--- NOTE | 2017-11-07 14:04 | PCM.PYCHPN ---
Psychiatric Progress Note - Psychiatric Progress Note Patient seen today, length of contact: 16 min Patient Chief Complaint: "I'm tired" Problems Identified/Issues Discussed: The pt is seen, chart reviewed, case discussed with staff. Support given, CBT and [place] used briefly No new symptoms reported, improving slowly and needs more time No SEs from medications, risks discussed. After care discussed - he is applying to [employer] and [employer] Medication Change: No Medical Record Reviewed: Yes Mental Status Examination - Cognitive Function Orientation: Person, Place, Situation, Time Memory: Intact Attention: Poor Concentration: Poor Association: WNL Fund of Knowledge: WNL - Mood Mood: Depressed - Affect Affect: Constricted - Speech Speech: Soft - Formal Thought Process Formal Thought Process: No Impairment - Suicidal Ideation Suicidal Ideation: No - Homicidal Ideation Homicidal Ideation: No Goal/Treatment Plan - Goal/Treatment Plan Need for Continued Stay: Severe depression anxiety, Discharge may exacerbated symptoms, Severe functional impairment Progress Toward Problem(s) and Goals/Treatment Plan: Continue Lexapro for depression but dose increased gabapentin too Support and psychoeducation daily Attend groups and activities daily After care planning by DONNIE, interested in going to [employer] or [facility]
[2017-11-08] MEDS: Albuterol HFA 90 mcg/actuation (8 g) IH PRN ×2 (10:10→21:48)
--- NOTE | 2017-11-08 17:34 | PCM.PYCHPN ---
Psychiatric Progress Note - Psychiatric Progress Note Patient seen today, length of contact: 16 min Patient Chief Complaint: "I'm not happy" Problems Identified/Issues Discussed: The pt is seen, chart reviewed, case discussed with staff. Support given, CBT and [place] used briefly No new symptoms reported, improving slowly and needs more time No SEs from medications, risks discussed. After care discussed - [facility] rejected him bc of no insomnia Medication Change: No Medical Record Reviewed: Yes Mental Status Examination - Cognitive Function Orientation: Person, Place, Situation, Time Memory: Intact Attention: Poor Concentration: Poor Association: WNL Fund of Knowledge: WNL - Mood Mood: Depressed - Affect Affect: Constricted - Speech Speech: Soft - Formal Thought Process Formal Thought Process: No Impairment - Suicidal Ideation Suicidal Ideation: No - Homicidal Ideation Homicidal Ideation: No Goal/Treatment Plan - Goal/Treatment Plan Need for Continued Stay: Severe depression anxiety, Discharge may exacerbated symptoms, Severe functional impairment Progress Toward Problem(s) and Goals/Treatment Plan: Continue Lexapro for depression Gabapentin too Support and psychoeducation daily Attend groups and activities daily After care planning by DONNIE, interested in going to [employer] or [facility]
[2017-11-09] MEDS: Albuterol HFA 90 mcg/actuation (8 g) IH PRN (10:05)
--- NOTE | 2017-11-10 10:05 | PCM.PYCHPN ---
Psychiatric Progress Note - Psychiatric Progress Note Patient seen today, length of contact: 16 min Patient Chief Complaint: i'm stillnot happy Problems Identified/Issues Discussed: pt seen and examined case discussed with staff. staff is concerned about what pt says on the phone to others because the symptoms damari descibes are not what the staff is seeing.pt talked about his father and mothere's that he has not grieved becasue of his addictions. Medical Problems: nothing acute Diagnostic Results: reviwed Medication Change: No Medical Record Reviewed: Yes Mental Status Examination - Cognitive Function Orientation: Person, Place, Situation, Time Attention: Poor Concentration: Poor Association: WNL Fund of Knowledge: WNL - Mood Mood: Depressed - Affect Affect: Constricted - Speech Speech: Soft - Formal Thought Process Formal Thought Process: No Impairment - Suicidal Ideation Suicidal Ideation: No - Homicidal Ideation Homicidal Ideation: No Goal/Treatment Plan - Goal/Treatment Plan Need for Continued Stay: Severe depression anxiety, Discharge may exacerbated symptoms, Severe functional impairment Progress Toward Problem(s) and Goals/Treatment Plan: mdd lexapro opiate use disorder [facility] supportive psychotherapy group milieu and recreational therapy sedative-hypnotic use disordercbt [facility] supportive psychotherapy group milieu and recreational therapy Estimated Date of D/C: 11/10/17 - Smoking Cessation Smoking Cessation Initiated: Yes
[2017-11-10] MEDS ORDERED: Benzocaine/Menthol (Cepacol) Lozenge MT PRN (12:28)
[2017-11-10] MEDS: guaiFENesin 200 mg/10 ml Syrup UD PO PRN ×2 (13:12→21:50)
--- NOTE | 2017-11-10 13:54 | PCM.PYCHPN ---
Psychiatric Progress Note - Psychiatric Progress Note Patient seen today, length of contact: 15 min Patient Chief Complaint: "I'm not feeling well" Problems Identified/Issues Discussed: The pt is seen, chart reviewed, case discussed with staff. Support given, CBT and [place] used briefly No new symptoms reported, improving slowly and needs more time No SEs from medications, risks discussed. After care discussed Patient not being discharged today due to a cold Patient was in bed, complaining of a migraine as well as the cold Medication Change: No Medical Record Reviewed: Yes Mental Status Examination - Cognitive Function Orientation: Person, Place, Situation, Time Attention: Poor Concentration: Poor Association: WNL Fund of Knowledge: WNL - Mood Mood: Depressed - Affect Affect: Constricted - Speech Speech: Soft - Formal Thought Process Formal Thought Process: No Impairment - Suicidal Ideation Suicidal Ideation: No - Homicidal Ideation Homicidal Ideation: No Goal/Treatment Plan - Goal/Treatment Plan Need for Continued Stay: Severe depression anxiety, Discharge may exacerbated symptoms, Severe functional impairment Progress Toward Problem(s) and Goals/Treatment Plan: Continue Lexapro for depression Gabapentin too Support and psychoeducation daily Attend groups and activities daily After care planning by DONNIE, interested in going to [employer] or [employer] Patient to be discharged tomorrow Estimated Date of D/C: 11/11/17
[2017-11-11] MEDS: Albuterol HFA 90 mcg/actuation (8 g) IH PRN ×2 (05:03→17:48)
[2017-11-11] MEDS: guaiFENesin 100 mg/5 ml Syrup UD PO PRN ×3 (05:04→17:46)
--- NOTE | 2017-11-11 12:31 | PCM.PYCHPN ---
Psychiatric Progress Note - Psychiatric Progress Note Patient seen today, length of contact: 15 min Patient Chief Complaint: "I'm so sick" Problems Identified/Issues Discussed: The pt is seen, chart reviewed, case discussed with staff. He postponed his transfer to [facility] to tomorrow b/c he feels depressed and has a bad cold Support given Pus, he spoke to his ex- who said she would send some money but parts data writer advised him to not be tempted by that and focus on his recovery. Not suicidal No SEs from meds Medication Change: Yes Medical Record Reviewed: Yes Mental Status Examination - Cognitive Function Orientation: Person, Place, Situation, Time Memory: Intact Attention: Poor Concentration: Poor Association: WNL Fund of Knowledge: WNL - Mood Mood: Depressed - Affect Affect: Constricted - Speech Speech: Soft - Formal Thought Process Formal Thought Process: No Impairment - Suicidal Ideation Suicidal Ideation: No - Homicidal Ideation Homicidal Ideation: No Goal/Treatment Plan - Goal/Treatment Plan Need for Continued Stay: Severe depression anxiety, Discharge may exacerbated symptoms, Severe functional impairment Progress Toward Problem(s) and Goals/Treatment Plan: Continue Lexapro for depression Gabapentin too Support and psychoeducation daily Attend groups and activities daily After care planning by DONNIE, interested in going to [facility] Patient to be discharged tomorrow Estimated Date of D/C: 11/12/17
[2017-11-11] MEDS: Albuterol-Ipratrop 3 mg / 0.5 (3 ml) UD INH PRN ×2 (12:53→19:05)
[2017-11-11] MEDS ORDERED: MethylPREDNISolone 40 mg Vial IVP STA (19:59)
--- NOTE | 2017-11-11 20:01 | CP.PCM.CON ---
<BarbraChris hayes - Last Filed: 11/11/17 21:03> History of Present Illness - History of Present Illness History of Present Illness: CC: SOB FULL CODE This patient is a 47yo M who was admitted for depression and suicidal ideation who also has a hx of COPD; intubated more than 6 times in the past, most recently 6 months ago. It has never been difficult for him to get off of the respirator. He states that he has a nonproductive cough, no sputum, no fevers/ chills, WATKINS, chest pain, abdominal pain, N/V/D, dysuria/freq/urg, or lower extremity pain. Of note; patient is extremely short of breath on non rebreather at 10L RA with duonebs; tri-poding, red, and tired. Pmhx: COPD, previous heroin abuse, Rheumatoid Arhritis, suicidal/refractory depression Meds: Albuterol PRN Allergies: denies Surgical: ACL repair FamHx: Rheumatoid Arthritis Social: unemployed, previous smoker quit 10 years ago 50+ pack years, previous heroin abuser, non drinker, independent in IADL and ADL Past Patient History - Infectious Disease Hx of Infectious Diseases: None - Past Social History Smoking Status: Heavy Smoker > 10 Cigarettes Daily - CARDIAC Hx Cardiac Disorders: No - PULMONARY Hx Chronic Obstructive Pulmonary Disease (COPD): Yes - NEUROLOGICAL Hx Neurological Disorder: No - HEENT Hx HEENT Problems: No - RENAL Hx Chronic Kidney Disease: No - ENDOCRINE/METABOLIC Hx Endocrine Disorders: No - HEMATOLOGICAL/ONCOLOGICAL Hx Blood Disorders: No - INTEGUMENTARY Hx Dermatological Problems: No - MUSCULOSKELETAL/RHEUMATOLOGICAL Hx Rheumatoid Arthritis: Yes - GASTROINTESTINAL Hx Gastrointestinal Disorders: No - GENITOURINARY/GYNECOLOGICAL Hx Genitourinary Disorders: No - PSYCHIATRIC Hx Substance Use: Yes - SURGICAL HISTORY Hx Surgeries: Yes Hx Orthopedic Surgery: Yes (Left knee:Repaired miniscus) - ANESTHESIA Hx Anesthesia: Yes Hx Anesthesia Reactions: No Meds Home Medications: Home Medication List Medication Instructions Recorded Confirmed Type Albuterol/Ipratropium [Duoneb 3 3 ml INH RQ4 PRN #1 neb 11/10/17 Rx mg/0.5 mg (3 ml) UD] Escitalopram [Lexapro] 20 mg PO DAILY #30 tab 11/10/17 Rx Gabapentin [Neurontin] 400 mg PO TID #90 cap 11/10/17 Rx QUEtiapine [SEROquel] 50 mg PO TID #90 tab 11/10/17 Rx QUEtiapine [Seroquel] 100 mg PO HS #30 tab 11/10/17 Rx predniSONE [predniSONE Tab] 10 mg PO DAILY PRN #14 tab 11/10/17 Rx Allergies/Adverse Reactions: Allergies Allergy/AdvReac Type Severity Reaction Status Date / Time No Known Allergies Allergy Verified 10/28/17 23:44 - Medications Medications: Current Medications Acetaminophen (Tylenol 325mg Tab) 650 mg PO Q6 PRN PRN Reason: Fever >100.4 F Albuterol (Ventolin Hfa 90 Mcg/Actuation (8 G)) 2 puff IH RQ6 PRN PRN Reason: Wheezing Last Admin: 11/11/17 17:48 Dose: 2 puff Albuterol/Ipratropium (Duoneb 3 Mg/0.5 Mg (3 Ml) Ud) 3 ml INH RQ2 THOM Benzocaine/Menthol (Cepacol Sore Throat) 1 mandi MT Q4H PRN PRN Reason: Sore Throat Last Admin: 11/10/17 13:12 Dose: 1 mandi Benztropine Mesylate (Cogentin) 2 mg PO Q6 PRN PRN Reason: Extra Pyramidal Symptoms Chlordiazepoxide (Librium) 25 mg PO Q4H PRN PRN Reason: Alcohol Withdrawal Last Admin: 10/29/17 19:25 Dose: 25 mg Clonidine HCl (Catapres) 0.1 mg PO Q4H PRN PRN Reason: Symptoms of alcohol withdrawl Diphenhydramine HCl (Benadryl) 50 mg PO Q6 PRN PRN Reason: Extra Pyramidal Symptoms Escitalopram Oxalate (Lexapro) 20 mg PO DAILY [facility] Last Admin: 11/11/17 10:05 Dose: 20 mg Gabapentin (Neurontin) 400 mg PO TID [facility] Last Admin: 11/11/17 17:43 Dose: 400 mg Guaifenesin (Robitussin) 200 mg PO Q4H PRN PRN Reason: Cough and congestion Last Admin: 11/11/17 17:46 Dose: 200 mg Haloperidol (Haldol) 5 mg PO Q8 PRN PRN Reason: Moderate Agitation Hydroxyzine HCl (Atarax) 50 mg PO Q6 PRN PRN Reason: Anxiety Last Admin: 11/05/17 15:38 Dose: 50 mg Ibuprofen (Motrin Tab) 600 mg PO Q6 PRN PRN Reason: Pain, Mild (1-3) Last Admin: 11/10/17 10:32 Dose: 600 mg Loperamide HCl (Imodium) 2 mg PO Q6 PRN PRN Reason: Diarrhea Last Admin: 11/11/17 12:09 Dose: 2 mg Methylprednisolone (Solu-Medrol) 60 mg IVP STAT STA Stop: 11/11/17 20:00 Prednisone (Prednisone Tab) 10 mg PO DAILY PRN PRN Reason: severe SOB Last Admin: 11/06/17 09:46 Dose: 10 mg Pseudoephedrine HCl (Sudafed Tab) 30 mg PO Q6 THOM Stop: 11/12/17 18:01 Last Admin: 11/11/17 17:43 Dose: 30 mg Quetiapine Fumarate (Seroquel) 100 mg PO HS THOM Last Admin: 11/10/17 21:50 Dose: 100 mg Quetiapine Fumarate (Seroquel) 50 mg PO TID THOM Last Admin: 11/11/17 17:43 Dose: 50 mg Trazodone HCl (Desyrel) 100 mg PO HS PRN PRN Reason: Insomnia Last Admin: 11/05/17 21:17 Dose: 100 mg Physical Exam - Constitutional Additional comments: extremely short of breath tripoding - Head Exam Head Exam: ATRAUMATIC - Eye Exam Eye Exam: EOMI, Normal appearance, PERRL Pupil Exam: PERRL - ENT Exam ENT Exam: Mucous Membranes Moist - Neck Exam Neck exam: Positive for: Full Rom. Negative for: Lymphadenopathy, Thyromegaly - Respiratory Exam Respiratory Exam: Wheezes. absent: Clear to Auscultation Bilateral, Rales, Rhonchi, NORMAL BREATHING PATTERN (tripoding, speaking in full sentences) - Cardiovascular Exam Cardiovascular Exam: Tachycardia, +S1, +S2 - GI/Abdominal Exam GI & Abdominal Exam: Normal Bowel Sounds, Soft. absent: Organomegaly, Pulsatile Mass, Rebound, Rigid, Tenderness - Extremities Exam Extremities exam: Positive for: full ROM. Negative for: calf tenderness - Back Exam Back exam: NORMAL INSPECTION. absent: CVA tenderness (L), CVA tenderness (R) - Neurological Exam Neurological exam: Alert, CN II-XII Intact, Oriented x3 - Psychiatric Exam Psychiatric exam: Normal Affect - Skin Skin Exam: Warm Results - Vital Signs Recent Vital Signs: Last Vital Signs Temp 97.6 F 11/11/17 06:49 Pulse 73 11/11/17 16:12 Resp 20 11/11/17 06:49 BP 126/88 11/11/17 16:12 Pulse Ox 100 11/11/17 06:49 Assessment & Plan - Assessment and Plan (Free Text) Assessment: 47yo M consulted for SOB COPD Exacerbation -patient intubated 6 times in the past, tripoding; pending ABG -received 60mg PO prednisone, will give 125mg IV push -duonebs THOM Q4H with Albuterol inbetween PRN for SOB -afebrile, non-productive sputum, no sick contacts, received flu shot -EKG was NSR with no ST/T wave changes at 80BPM -pending ABG; consider BiPap/Intubation depending -placed on BiPap 12/6/30% overnight -doxycycline for CAP prophylaxis in COPD f/u chest x-ray Depression/Anxiety -will continue with treatment plan as per psych Prophylaxis -GI prophylaxis not indicated -lovenox Discussed with Dr. Apple and Dr. Guillermo Bonilla PGY2 <Arcenio Apple - Last Filed: 11/12/17 06:25> Meds - Medications Medications: Current Medications Acetaminophen (Tylenol 325mg Tab) 650 mg PO Q6 PRN PRN Reason: Fever >100.4 F Albuterol (Ventolin Hfa 90 Mcg/Actuation (8 G)) 2 puff IH RQ6 PRN PRN Reason: Wheezing Last Admin: 11/11/17 17:48 Dose: 2 puff Albuterol Sulfate (Albuterol 0.083% Inhal Gabi (2.5 Mg/3 Ml) Ud) 2.5 mg INH RQ4 PRN PRN Reason: Cough and congestion Last Admin: 11/12/17 03:24 Dose: 2.5 mg Albuterol Sulfate (Albuterol 0.083% Inhal Gabi (2.5 Mg/3 Ml) Ud) 2.5 mg INH Q15MIN PRN PRN Reason: Cough and congestion Albuterol/Ipratropium (Duoneb 3 Mg/0.5 Mg (3 Ml) Ud) 3 ml INH RQ4 THOM Last Admin: 11/12/17 03:28 Dose: Not Given Benzocaine/Menthol (Cepacol Sore Throat) 1 mandi MT Q4H PRN PRN Reason: Sore Throat Last Admin: 11/10/17 13:12 Dose: 1 mandi Benztropine Mesylate (Cogentin) 2 mg PO Q6 PRN PRN Reason: Extra Pyramidal Symptoms Budesonide (Pulmicort Respules) 0.5 mg INH RQ12 THOM Chlordiazepoxide (Librium) 25 mg PO Q4H PRN PRN Reason: Alcohol Withdrawal Last Admin: 11/12/17 05:41 Dose: 25 mg Clonidine HCl (Catapres) 0.1 mg PO Q4H PRN PRN Reason: Symptoms of alcohol withdrawl Diphenhydramine HCl (Benadryl) 50 mg PO Q6 PRN PRN Reason: Extra Pyramidal Symptoms Doxycycline Hyclate (Doryx) 100 mg PO Q12H THOM PRN Reason: Protocol Last Admin: 11/11/17 21:46 Dose: 100 mg Escitalopram Oxalate (Lexapro) 20 mg PO DAILY [facility] Last Admin: 11/11/17 10:05 Dose: 20 mg Gabapentin (Neurontin) 400 mg PO TID [facility] Last Admin: 11/11/17 17:43 Dose: 400 mg Guaifenesin (Robitussin) 200 mg PO Q4H PRN PRN Reason: Cough and congestion Last Admin: 11/11/17 17:46 Dose: 200 mg Haloperidol (Haldol) 5 mg PO Q8 PRN PRN Reason: Moderate Agitation Hydroxyzine HCl (Atarax) 50 mg PO Q6 PRN PRN Reason: Anxiety Last Admin: 11/05/17 15:38 Dose: 50 mg Loperamide HCl (Imodium) 2 mg PO Q6 PRN PRN Reason: Diarrhea Last Admin: 11/11/17 12:09 Dose: 2 mg Pneumococcal Polyvalent Vaccine (Pneumovax 23 Vaccine) 0.5 ml IM .ONCE ONE Stop: 11/13/17 11:01 Prednisone (Prednisone Tab) 10 mg PO DAILY PRN PRN Reason: severe SOB Last Admin: 11/06/17 09:46 Dose: 10 mg Pseudoephedrine HCl (Sudafed Tab) 30 mg PO Q6 [facility] Stop: 11/12/17 18:01 Last Admin: 11/12/17 05:39 Dose: 30 mg Quetiapine Fumarate (Seroquel) 100 mg PO HS THOM Last Admin: 11/11/17 22:46 Dose: 100 mg Quetiapine Fumarate (Seroquel) 50 mg PO TID THOM Last Admin: 11/11/17 17:43 Dose: 50 mg Trazodone HCl (Desyrel) 100 mg PO HS PRN PRN Reason: Insomnia Last Admin: 11/05/17 21:17 Dose: 100 mg Results - Vital Signs Recent Vital Signs: Last Vital Signs Temp 97.5 F L 11/11/17 23:15 Pulse 107 H 11/12/17 04:11 Resp 20 11/11/17 23:15 BP 129/78 11/11/17 23:15 Pulse Ox 95 11/11/17 23:15 - Labs Result Diagrams: 11/11/17 22:47 11/11/17 22:47 Labs: Laboratory Results - last 24 hr 11/11/17 11/11/17 11/11/17 20:20 22:47 22:47 WBC 13.7 H RBC 4.80 Hgb 14.9 Hct 42.8 MCV 89.2 MCH 31.0 MCHC 34.8 RDW 12.8 Plt Count 335 MPV 7.0 L Neut % (Auto) 89.6 H Lymph % (Auto) 5.9 L [place] % (Auto) 3.4 Eos % (Auto) 0.8 Baso % (Auto) 0.3 Neut # (Auto) 12.3 H Lymph # (Auto) 0.8 L [place] # (Auto) 0.5 Eos # (Auto) 0.1 Baso # (Auto) 0.0 Neutrophils % (Manual) 81 H Band Neutrophils % 8 H Lymphocytes % (Manual) 6 L Monocytes % (Manual) 4 Eosinophils % (Manual) 1 Platelet Estimate Normal Microcytosis (manual) Slight Puncture Site Rradial pCO2 34 L pO2 105 H HCO3 25.6 ABG pH 7.46 H ABG Total CO2 25.2 ABG O2 Saturation 99.3 H ABG Base Excess 0.8 Surinder Test Pos ABG Potassium 3.2 L A-a O2 Difference 2.0 Respiratory Index 0 Sodium 139.0 142 Chloride 107.0 99 Glucose 93 Lactate 1.5 FiO2 21.0 Potassium 3.5 L Carbon Dioxide 24 Anion Gap 22 H BUN 20 Creatinine 0.8 Est GFR ( Amer) > 60 Est GFR (Non-Af Amer) > 60 Random Glucose 147 H Calcium 9.7 Phosphorus 3.3 Magnesium 2.1 Total Bilirubin 1.6 H AST 29 ALT 15 L Alkaline Phosphatase 67 Total Protein 8.5 H Albumin 4.7 Globulin 3.8 Albumin/Globulin Ratio 1.2 Arterial Blood Potassium 3.2 L Attending/Attestation - Attestation I have personally seen and examined this patient.: Yes I have fully participated in the care of the patient.: Yes I have reviewed all pertinent clinical information: Yes Notes (Text): Assessment * Severe broncoconstriction, prolonged duration, improved on back to back treatment with neb, b/l prior intubations for same reason. * Depression, not suicidal, not 1:1 in pshych. * H/o rheumatoid arthritis, on nsaids, low dose prednisone * Tobacco abuse. Plan * IV systemic steroids * Bipap short time * continue psych meds * Labs, cxr * Emperic doxy due to severe reactive air way disease * Gi/DVT prophylaxis * DC NSAIDS * Counselled about tobacco cessation.
[2017-11-11] MEDS ORDERED: Albuterol 0.083% Inhal Sol (2.5 mg/3 mL) UD INH PRN (20:24)
[2017-11-11 20:25] LABS: ABG ALLEN TEST POS; ARTERIAL BLOOD GAS HCO3 25.6 mmol/L (21-28); ARTERIAL BLOOD GAS O2 SAT 99.3 % (95-98); ARTERIAL BLOOD GAS PCO2 34 mm/Hg (35-45); ARTERIAL BLOOD GAS PH 7.46 (7.35-7.45); ARTERIAL BLOOD GAS PO2 105 mm/Hg (80-100); ARTERIAL BLOOD GAS TCO2 25.2 mmol/L (22-28)
[2017-11-11] MEDS: Albuterol 0.083% Inhal Sol (2.5 mg/3 mL) UD INH PRN ×3 (20:25→21:22)
[2017-11-11] MEDS ORDERED: Magnesium Sulfate 1 gm in D5W 1 GM/100 ML BAG IVPB ONE ×2 (20:53→23:00)
--- NOTE | 2017-11-11 21:41 | CP.PCM.HP ---
History of Present Illness - History of Present Illness History of Present Illness: CC: SOB FULL CODE This patient is a 47yo M who was admitted for depression and suicidal ideation who also has a hx of COPD; intubated more than 6 times in the past, most recently 6 months ago. It has never been difficult for him to get off of the respirator. He states that he has a nonproductive cough, no sputum, no fevers/ chills, WATKINS, chest pain, abdominal pain, N/V/D, dysuria/freq/urg, or lower extremity pain. Of note; patient is extremely short of breath on non rebreather at 10L RA with duonebs; tri-poding, red, and tired. Pmhx: COPD, previous heroin abuse, Rheumatoid Arhritis, suicidal/refractory depression Meds: Albuterol PRN Allergies: denies Surgical: ACL repair FamHx: Rheumatoid Arthritis Social: unemployed, previous smoker quit 10 years ago 50+ pack years, previous heroin abuser, non drinker, independent in IADL and ADL Past Patient History - Infectious Disease Hx of Infectious Diseases: None - Past Social History Smoking Status: Heavy Smoker > 10 Cigarettes Daily - CARDIAC Hx Cardiac Disorders: No - PULMONARY Hx Chronic Obstructive Pulmonary Disease (COPD): Yes - NEUROLOGICAL Hx Neurological Disorder: No - HEENT Hx HEENT Problems: No - RENAL Hx Chronic Kidney Disease: No - ENDOCRINE/METABOLIC Hx Endocrine Disorders: No - HEMATOLOGICAL/ONCOLOGICAL Hx Blood Disorders: No - INTEGUMENTARY Hx Dermatological Problems: No - MUSCULOSKELETAL/RHEUMATOLOGICAL Hx Rheumatoid Arthritis: Yes - GASTROINTESTINAL Hx Gastrointestinal Disorders: No - GENITOURINARY/GYNECOLOGICAL Hx Genitourinary Disorders: No - PSYCHIATRIC Hx Substance Use: Yes - SURGICAL HISTORY Hx Surgeries: Yes Hx Orthopedic Surgery: Yes (Left knee:Repaired miniscus) - ANESTHESIA Hx Anesthesia: Yes Hx Anesthesia Reactions: No Meds Home Medications: Home Medication List Medication Instructions Recorded Confirmed Type Albuterol/Ipratropium [Duoneb 3 3 ml INH RQ4 PRN #1 neb 11/10/17 Rx mg/0.5 mg (3 ml) UD] Escitalopram [Lexapro] 20 mg PO DAILY #30 tab 11/10/17 Rx Gabapentin [Neurontin] 400 mg PO TID #90 cap 11/10/17 Rx QUEtiapine [SEROquel] 50 mg PO TID #90 tab 11/10/17 Rx QUEtiapine [Seroquel] 100 mg PO HS #30 tab 11/10/17 Rx predniSONE [predniSONE Tab] 10 mg PO DAILY PRN #14 tab 11/10/17 Rx Allergies/Adverse Reactions: Allergies Allergy/AdvReac Type Severity Reaction Status Date / Time No Known Allergies Allergy Verified 10/28/17 23:44 - Medications Medications: Current Medications Acetaminophen (Tylenol 325mg Tab) 650 mg PO Q6 PRN PRN Reason: Fever >100.4 F Albuterol (Ventolin Hfa 90 Mcg/Actuation (8 G)) 2 puff IH RQ6 PRN PRN Reason: Wheezing Last Admin: 11/11/17 17:48 Dose: 2 puff Albuterol/Ipratropium (Duoneb 3 Mg/0.5 Mg (3 Ml) Ud) 3 ml INH RQ2 THOM Benzocaine/Menthol (Cepacol Sore Throat) 1 mandi MT Q4H PRN PRN Reason: Sore Throat Last Admin: 11/10/17 13:12 Dose: 1 mandi Benztropine Mesylate (Cogentin) 2 mg PO Q6 PRN PRN Reason: Extra Pyramidal Symptoms Chlordiazepoxide (Librium) 25 mg PO Q4H PRN PRN Reason: Alcohol Withdrawal Last Admin: 10/29/17 19:25 Dose: 25 mg Clonidine HCl (Catapres) 0.1 mg PO Q4H PRN PRN Reason: Symptoms of alcohol withdrawl Diphenhydramine HCl (Benadryl) 50 mg PO Q6 PRN PRN Reason: Extra Pyramidal Symptoms Escitalopram Oxalate (Lexapro) 20 mg PO DAILY [facility] Last Admin: 11/11/17 10:05 Dose: 20 mg Gabapentin (Neurontin) 400 mg PO TID [facility] Last Admin: 11/11/17 17:43 Dose: 400 mg Guaifenesin (Robitussin) 200 mg PO Q4H PRN PRN Reason: Cough and congestion Last Admin: 11/11/17 17:46 Dose: 200 mg Haloperidol (Haldol) 5 mg PO Q8 PRN PRN Reason: Moderate Agitation Hydroxyzine HCl (Atarax) 50 mg PO Q6 PRN PRN Reason: Anxiety Last Admin: 11/05/17 15:38 Dose: 50 mg Ibuprofen (Motrin Tab) 600 mg PO Q6 PRN PRN Reason: Pain, Mild (1-3) Last Admin: 11/10/17 10:32 Dose: 600 mg Loperamide HCl (Imodium) 2 mg PO Q6 PRN PRN Reason: Diarrhea Last Admin: 11/11/17 12:09 Dose: 2 mg Methylprednisolone (Solu-Medrol) 60 mg IVP STAT STA Stop: 11/11/17 20:00 Prednisone (Prednisone Tab) 10 mg PO DAILY PRN PRN Reason: severe SOB Last Admin: 11/06/17 09:46 Dose: 10 mg Pseudoephedrine HCl (Sudafed Tab) 30 mg PO Q6 THOM Stop: 11/12/17 18:01 Last Admin: 11/11/17 17:43 Dose: 30 mg Quetiapine Fumarate (Seroquel) 100 mg PO HS THOM Last Admin: 11/10/17 21:50 Dose: 100 mg Quetiapine Fumarate (Seroquel) 50 mg PO TID THOM Last Admin: 11/11/17 17:43 Dose: 50 mg Trazodone HCl (Desyrel) 100 mg PO HS PRN PRN Reason: Insomnia Last Admin: 11/05/17 21:17 Dose: 100 mg Physical Exam - Constitutional Additional comments: extremely short of breath tripoding - Head Exam Head Exam: ATRAUMATIC - Eye Exam Eye Exam: EOMI, Normal appearance, PERRL Pupil Exam: PERRL - ENT Exam ENT Exam: Mucous Membranes Moist - Neck Exam Neck exam: Positive for: Full Rom. Negative for: Lymphadenopathy, Thyromegaly - Respiratory Exam Respiratory Exam: Wheezes. absent: Clear to Auscultation Bilateral, Rales, Rhonchi, NORMAL BREATHING PATTERN (tripoding, speaking in full sentences) - Cardiovascular Exam Cardiovascular Exam: Tachycardia, +S1, +S2 - GI/Abdominal Exam GI & Abdominal Exam: Normal Bowel Sounds, Soft. absent: Organomegaly, Pulsatile Mass, Rebound, Rigid, Tenderness - Extremities Exam Extremities exam: Positive for: full ROM. Negative for: calf tenderness - Back Exam Back exam: NORMAL INSPECTION. absent: CVA tenderness (L), CVA tenderness (R) - Neurological Exam Neurological exam: Alert, CN II-XII Intact, Oriented x3 - Psychiatric Exam Psychiatric exam: Normal Affect - Skin Skin Exam: Warm Results - Vital Signs Recent Vital Signs: Last Vital Signs Temp 97.6 F 11/11/17 06:49 Pulse 73 11/11/17 16:12 Resp 20 11/11/17 06:49 BP 126/88 11/11/17 16:12 Pulse Ox 100 11/11/17 06:49 Assessment & Plan - Assessment and Plan (Free Text) Assessment: 47yo M consulted for SOB COPD Exacerbation -patient intubated 6 times in the past, tripoding; pending ABG -received 60mg PO prednisone, will give 125mg IV push -duonebs THOM Q4H with Albuterol inbetween PRN for SOB -afebrile, non-productive sputum, no sick contacts, received flu shot -EKG was NSR with no ST/T wave changes at 80BPM -pending ABG; consider BiPap/Intubation depending -placed on BiPap 12/6/30% overnight -doxycycline for CAP prophylaxis in COPD f/u chest x-ray Depression/Anxiety -will continue with treatment plan as per psych Prophylaxis -GI prophylaxis not indicated -lovenox Discussed with Dr. Apple and Dr. Guillermo Bonilla PGY2 Present on Admission - Present on Admission Any Indicators Present on Admission: Yes History of DVT/PE: No History of Uncontrolled Diabetes: No Urinary Catheter: No Decubitus Ulcer Present: No Past Patient History - Infectious Disease Hx of Infectious Diseases: None - Past Social History Smoking Status: Heavy Smoker > 10 Cigarettes Daily - CARDIAC Hx Cardiac Disorders: No - PULMONARY Hx Chronic Obstructive Pulmonary Disease (COPD): Yes - NEUROLOGICAL Hx Neurological Disorder: No - HEENT Hx HEENT Problems: No - RENAL Hx Chronic Kidney Disease: No - ENDOCRINE/METABOLIC Hx Endocrine Disorders: No - HEMATOLOGICAL/ONCOLOGICAL Hx Blood Disorders: No - INTEGUMENTARY Hx Dermatological Problems: No - MUSCULOSKELETAL/RHEUMATOLOGICAL Hx Rheumatoid Arthritis: Yes - GASTROINTESTINAL Hx Gastrointestinal Disorders: No - GENITOURINARY/GYNECOLOGICAL Hx Genitourinary Disorders: No - PSYCHIATRIC Hx Substance Use: Yes - SURGICAL HISTORY Hx Surgeries: Yes Hx Orthopedic Surgery: Yes (Left knee:Repaired miniscus) - ANESTHESIA Hx Anesthesia: Yes Hx Anesthesia Reactions: No Meds Home Medications: Home Medication List Medication Instructions Recorded Confirmed Type Albuterol/Ipratropium [Duoneb 3 3 ml INH RQ4 PRN #1 neb 11/10/17 Rx mg/0.5 mg (3 ml) UD] Escitalopram [Lexapro] 20 mg PO DAILY #30 tab 11/10/17 Rx Gabapentin [Neurontin] 400 mg PO TID #90 cap 11/10/17 Rx QUEtiapine [SEROquel] 50 mg PO TID #90 tab 11/10/17 Rx QUEtiapine [Seroquel] 100 mg PO HS #30 tab 11/10/17 Rx predniSONE [predniSONE Tab] 10 mg PO DAILY PRN #14 tab 11/10/17 Rx Allergies/Adverse Reactions: Allergies Allergy/AdvReac Type Severity Reaction Status Date / Time No Known Allergies Allergy Verified 10/28/17 23:44 Results - Vital Signs Recent Vital Signs: Last Vital Signs Temp 97.7 F 11/11/17 21:29 Pulse 102 H 11/11/17 21:29 Resp 18 11/11/17 21:29 BP 121/86 11/11/17 21:29 Pulse Ox 95 11/11/17 21:29 - Labs Labs: Laboratory Results - last 24 hr 11/11/17 20:20 Puncture Site Rradial pCO2 34 L pO2 105 H HCO3 25.6 ABG pH 7.46 H ABG Total CO2 25.2 ABG O2 Saturation 99.3 H ABG Base Excess 0.8 Surinder Test Pos ABG Potassium 3.2 L A-a O2 Difference 2.0 Respiratory Index 0 Sodium 139.0 Chloride 107.0 Glucose 93 Lactate 1.5 FiO2 21.0 Arterial Blood Potassium 3.2 L Decision To Admit - Pt Status Changed To: Hospital Disposition Of: Observation - . Bed Request Type: Telemetry Admitting Physician: Arcenio Apple
[2017-11-11] MEDS: Albuterol-Ipratrop 3 mg / 0.5 (3 ml) UD INH SCH (21:46)
[2017-11-11 22:55] LABS: BASO % 0.3 % (0.0-2.0); EOS # 0.1 K/uL (0.0-0.7); EOS % 0.8 % (0.0-4.0); HEMOGLOBIN 14.9 g/dL (12.0-18.0); LYMPH # 0.8 K/uL (1.0-4.3); LYMPH % 5.9 % (20.0-40.0); MEAN CELL VOLUME 89.2 fL (80.0-94.0); MEAN CORPUSCULAR HGB CONC 34.8 g/dL (33.0-37.0); MONO # 0.5 K/uL (0.0-0.8); MONO % 3.4 % (0.0-10.0); NEUT # 12.3 K/uL (1.8-7.0); NEUT % 89.6 % (50.0-75.0); PLATELET COUNT 335 K/uL (130-400); RED CELL DISTRIBUTION WIDTH 12.8 % (11.5-14.5); WHITE BLOOD COUNT 13.7 K/uL (4.8-10.8)
[2017-11-11 23:03] LABS: ALB/GLOB RATIO 1.2 (1.0-2.1); ALBUMIN 4.7 g/dL (3.5-5.0); ALT/SGPT 15 U/L (21-72); AST/SGOT 29 U/L (17-59); BLOOD UREA NITROGEN 20 mg/dL (9-20); CALCIUM 9.7 mg/dl (8.6-10.4); GFR AFRICAN-AMERICAN > 60; GFR NON-AFRICAN AMERICAN > 60
[2017-11-11 23:30] LABS: BANDS 8 % (0-2); EOSINOPHIL 1 % (0-4); LYMPHOCYTE 6 % (20-40); MICROCYTOSIS SLIGHT; MONOCYTE 4 % (0-10); NEUTROPHIL 81 % (50-75); PLATELET ESTIMATE NORMAL (NORMAL); TOTAL CELLS COUNTED 100
[2017-11-12] MEDS: Albuterol 0.083% Inhal Sol (2.5 mg/3 mL) UD INH PRN (03:24)
[2017-11-12] MEDS: Albuterol-Ipratrop 3 mg / 0.5 (3 ml) UD INH SCH ×6 (03:28→23:45)
[2017-11-12 07:35] LABS: BASO % 0.1 % (0.0-2.0); HEMOGLOBIN 13.2 g/dL (12.0-18.0); LYMPH # 0.2 K/uL (1.0-4.3); LYMPH % 3.5 % (20.0-40.0); MEAN CELL VOLUME 89.1 fL (80.0-94.0); MEAN CORPUSCULAR HEMOGLOBIN 30.9 pg (27.0-31.0); MEAN CORPUSCULAR HGB CONC 34.6 g/dL (33.0-37.0); MEAN PLATELET VOLUME 7.5 fL (7.2-11.7); MONO # 0.1 K/uL (0.0-0.8); MONO % 1.1 % (0.0-10.0); NEUT # 6.7 K/uL (1.8-7.0); NEUT % 95.3 % (50.0-75.0); PLATELET COUNT 322 K/uL (130-400); RBC 4.29 Mil/uL (4.40-5.90); WHITE BLOOD COUNT 7.1 K/uL (4.8-10.8)
[2017-11-12 07:44] LABS: ALB/GLOB RATIO 1.3 (1.0-2.1); ALBUMIN 4.2 g/dL (3.5-5.0); ALT/SGPT < 6 U/L (21-72); AST/SGOT 35 U/L (17-59); BLOOD UREA NITROGEN 22 mg/dL (9-20); CALCIUM 9.5 mg/dl (8.6-10.4); GFR AFRICAN-AMERICAN > 60; GFR NON-AFRICAN AMERICAN > 60
[2017-11-12] MEDS ORDERED: Budesonide 0.5 mg/2 ml Inhal Susp UD INH SCH (08:00)
[2017-11-12] MEDS ORDERED: Fluticasone-Salmeterol 500-50mcg Diskus INH SCH (08:00)
[2017-11-12 08:19] LABS: LYMPHOCYTE 2 % (20-40); NEUTROPHIL 98 % (50-75); TOTAL CELLS COUNTED 100
[2017-11-12 08:20] LABS: PLATELET ESTIMATE NORMAL (NORMAL)
[2017-11-12] MEDS ORDERED: MethylPREDNISolone 40 mg Vial IVP STA (09:01)
--- NOTE | 2017-11-12 09:14 | RAD ---
Chest x-ray single frontal view History: Shortness of breath. Comparison: None available. Findings: No focal infiltrate or effusion. Heart size within normal limits. Bilateral hilar prominence. Impression: No focal infiltrate or effusion.
[2017-11-12] MEDS: guaiFENesin 100 mg/5 ml Syrup UD PO PRN (09:25)
--- NOTE | 2017-11-12 10:53 | CP.PCM.PN ---
Subjective - Date & Time of Evaluation Date of Evaluation: 11/12/17 Time of Evaluation: 10:51 - Subjective Subjective: patient seen and examined at bedside Breathing much better than yesterday still wheezing only other complaint is pain in the joints he attributes to his RA. Of note the patient takes 10mg oxycodone prescribed by his PMD in [facility] every 6 hours for the pain. Objective - Vital Signs/Intake and Output Vital Signs (last 24 hours): Temp Pulse Resp BP Pulse Ox 98.1 F 103 H 18 99/55 L 95 11/12/17 07:15 11/12/17 07:15 11/12/17 07:15 11/12/17 07:15 11/12/17 07:15 Intake and Output: 11/12/17 11/12/17 06:59 18:59 Intake Total 360 Output Total 550 Balance -190 - Medications Medications: Current Medications Albuterol/Ipratropium (Duoneb 3 Mg/0.5 Mg (3 Ml) Ud) 3 ml INH RQ4 [facility] Last Admin: 11/12/17 07:18 Dose: Not Given Benzocaine/Menthol (Cepacol Sore Throat) 1 mandi MT Q4H PRN PRN Reason: Sore Throat Last Admin: 11/10/17 13:12 Dose: 1 mandi Benztropine Mesylate (Cogentin) 2 mg PO Q6 PRN PRN Reason: Extra Pyramidal Symptoms Chlordiazepoxide (Librium) 25 mg PO Q4H PRN PRN Reason: Alcohol Withdrawal Last Admin: 11/12/17 05:41 Dose: 25 mg Clonidine HCl (Catapres) 0.1 mg PO Q4H PRN PRN Reason: Symptoms of alcohol withdrawl Diphenhydramine HCl (Benadryl) 50 mg PO Q6 PRN PRN Reason: Extra Pyramidal Symptoms Escitalopram Oxalate (Lexapro) 20 mg PO DAILY [facility] Last Admin: 11/12/17 09:40 Dose: 20 mg Gabapentin (Neurontin) 400 mg PO TID [facility] Last Admin: 11/12/17 09:40 Dose: 400 mg Guaifenesin (Robitussin) 200 mg PO Q4H PRN PRN Reason: Cough and congestion Last Admin: 11/12/17 09:25 Dose: 200 mg Hydroxyzine HCl (Atarax) 50 mg PO Q6 PRN PRN Reason: Anxiety Last Admin: 11/05/17 15:38 Dose: 50 mg Loperamide HCl (Imodium) 2 mg PO Q6 PRN PRN Reason: Diarrhea Last Admin: 11/11/17 12:09 Dose: 2 mg Methylprednisolone (Solu-Medrol) 60 mg IVP Q8H [facility] Pneumococcal Polyvalent Vaccine (Pneumovax 23 Vaccine) 0.5 ml IM .ONCE ONE Stop: 11/13/17 11:01 Quetiapine Fumarate (Seroquel) 100 mg PO HS [facility] Last Admin: 11/11/17 22:46 Dose: 100 mg Quetiapine Fumarate (Seroquel) 50 mg PO TID [facility] Last Admin: 11/12/17 09:25 Dose: 50 mg Trazodone HCl (Desyrel) 100 mg PO HS PRN PRN Reason: Insomnia Last Admin: 11/05/17 21:17 Dose: 100 mg - Labs Labs: 11/12/17 06:56 11/12/17 06:56 - Constitutional Appears: Well - Head Exam Head Exam: ATRAUMATIC, NORMAL INSPECTION, NORMOCEPHALIC - Eye Exam Eye Exam: EOMI, Normal appearance, PERRL Pupil Exam: NORMAL ACCOMODATION, PERRL - ENT Exam ENT Exam: Mucous Membranes Moist, Normal Exam - Neck Exam Neck Exam: Full ROM, Normal Inspection. absent: Lymphadenopathy - Respiratory Exam Respiratory Exam: Wheezes - Cardiovascular Exam Cardiovascular Exam: REGULAR RHYTHM, +S1, +S2. absent: Murmur - GI/Abdominal Exam GI & Abdominal Exam: Soft, Normal Bowel Sounds. absent: Tenderness - Extremities Exam Extremities Exam: Full ROM, Normal Capillary Refill, Normal Inspection. absent : Joint Swelling, Pedal Edema - Back Exam Back Exam: NORMAL INSPECTION - Neurological Exam Neurological Exam: Alert, Awake, CN II-XII Intact, Normal Gait, Oriented x3 - Psychiatric Exam Psychiatric exam: Normal Affect, Normal Mood - Skin Skin Exam: Dry, Intact, Normal Color, Warm Assessment and Plan - Assessment and Plan (Free Text) Assessment: COPD Exacerbation -patient intubated 6 times in the past -received 60mg PO prednisone -duonebs [facility] Q4H with Albuterol in between PRN for SOB -afebrile, non-productive sputum, no sick contacts, received flu shot -EKG was NSR with no ST/T wave changes at 80 BPM -BiPap/Intubation depending -placed on BiPap 12/6/30% overnight Depression/Anxiety -will continue with treatment plan as per psych Prophylaxis -GI prophylaxis not indicated -lovenox
--- NOTE | 2017-11-12 11:31 | PCM.PYCHPN ---
Psychiatric Progress Note - Psychiatric Progress Note Patient seen today, length of contact: 16 min Patient Chief Complaint: "I'm sick" Problems Identified/Issues Discussed: The pt is seen, chart reviewed, case discussed with staff. Support given, CBT and LA used briefly No SEs from medications, risks discussed. Not suicidal After care discussed Transfer to [facility] postponed now that pt is on medical floor due to COPD exacerbation Medication Change: Yes Medical Record Reviewed: Yes Mental Status Examination - Cognitive Function Orientation: Person, Place, Situation, Time Memory: Intact Attention: Poor Concentration: Poor Association: WNL Fund of Knowledge: WNL - Mood Mood: Depressed - Affect Affect: Constricted - Speech Speech: Soft - Formal Thought Process Formal Thought Process: No Impairment - Suicidal Ideation Suicidal Ideation: No - Homicidal Ideation Homicidal Ideation: No Goal/Treatment Plan - Goal/Treatment Plan Need for Continued Stay: Severe depression anxiety, Discharge may exacerbated symptoms, Severe functional impairment Progress Toward Problem(s) and Goals/Treatment Plan: Continue Lexapro for depression Gabapentin too Support and psychoeducation daily Attend groups and activities daily After care planning by DONNIE, interested in going to [facility] Estimated Date of D/C: 11/13/17
[2017-11-12] MEDS: MethylPREDNISolone 40 mg Vial IVP SCH ×3 (14:38→23:16)
--- NOTE | 2017-11-12 16:40 | CP.PCM.CON ---
History of Present Illness - History of Present Illness History of Present Illness: Reason for consult: COPD exacerbation HPI: 47M with PMHx of COPD, major depressive disorder and rheumatoid arthritis was brought to the ED 10/28 for suicidal ideation and major depression. He was admitted to the psychiatric service and made gradual improvement. He was set to be discharged 11/11 but began feeling ill. He was noted to be red, short of breath , He was transferred to the medicine service for COPD exacerbation. Today, the patient was seen and examined at bedside. He was resting comfortably with BiPAP on standby. He reports that his shortness of breath is better with the BiPAP on, but will worsen without it. He denies cough today, and his only other complaint is arthritic pain, which he believes will be relieved with his prescribed oxycodone. He is noticeably tremulous PMHx: COPD with previous intubations, RA, major depressive disorder, opioid use disorder PSH: ACL repair Home meds: ventolin,nebulizer, steroid inhaler Allergies: NKDA SH: heavy tobacco habit 50+ pack years, previous heroin use, alcohol use Assessment and Plan: 1. COPD Exacerbation - Saturating 95-100% on 2L NC - ABG 11/11: 7.46/34/105/25.6 - CXR 11/11: hyperinflated lungs, no focal infiltrate or effusion, bilateral hilar prominence - duoneb - solumedrol 60mg Q8h - BiPAP 12/6 FiO2 30% Past Patient History - Infectious Disease Hx of Infectious Diseases: None - Past Medical History & Family History Past Medical History?: Yes - Past Social History Smoking Status: Former Smoker - CARDIAC Hx Cardiac Disorders: No - PULMONARY Hx Chronic Obstructive Pulmonary Disease (COPD): Yes - NEUROLOGICAL Hx Neurological Disorder: No - HEENT Hx HEENT Problems: No - RENAL Hx Chronic Kidney Disease: No - ENDOCRINE/METABOLIC Hx Endocrine Disorders: No - HEMATOLOGICAL/ONCOLOGICAL Hx Blood Disorders: No - INTEGUMENTARY Hx Dermatological Problems: No - MUSCULOSKELETAL/RHEUMATOLOGICAL Hx Falls: No - GASTROINTESTINAL Hx Gastrointestinal Disorders: No - GENITOURINARY/GYNECOLOGICAL Hx Genitourinary Disorders: No - PSYCHIATRIC Hx Substance Use: No - SURGICAL HISTORY Hx Surgeries: Yes Hx Orthopedic Surgery: Yes (Left knee:Repaired miniscus) - ANESTHESIA Hx Anesthesia: Yes Hx Anesthesia Reactions: No Hx Malignant Hyperthermia: No Has any member of the family had a problem w/ anesthesia?: No Meds Home Medications: Home Medication List Medication Instructions Recorded Confirmed Type Albuterol/Ipratropium [Duoneb 3 3 ml INH RQ4 PRN #1 neb 11/10/17 Rx mg/0.5 mg (3 ml) UD] Escitalopram [Lexapro] 20 mg PO DAILY #30 tab 11/10/17 Rx Gabapentin [Neurontin] 400 mg PO TID #90 cap 11/10/17 Rx QUEtiapine [SEROquel] 50 mg PO TID #90 tab 11/10/17 Rx QUEtiapine [Seroquel] 100 mg PO HS #30 tab 11/10/17 Rx predniSONE [predniSONE Tab] 10 mg PO DAILY PRN #14 tab 11/10/17 Rx Allergies/Adverse Reactions: Allergies Allergy/AdvReac Type Severity Reaction Status Date / Time No Known Allergies Allergy Verified 10/28/17 23:44 - Medications Medications: Current Medications Albuterol/Ipratropium (Duoneb 3 Mg/0.5 Mg (3 Ml) Ud) 3 ml INH RQ4 [facility] Last Admin: 11/12/17 16:18 Dose: 3 ml Benzocaine/Menthol (Cepacol Sore Throat) 1 mandi MT Q4H PRN PRN Reason: Sore Throat Last Admin: 11/10/17 13:12 Dose: 1 mandi Benztropine Mesylate (Cogentin) 2 mg PO Q6 PRN PRN Reason: Extra Pyramidal Symptoms Chlordiazepoxide (Librium) 25 mg PO Q4H PRN PRN Reason: Alcohol Withdrawal Last Admin: 11/12/17 12:28 Dose: 25 mg Clonidine HCl (Catapres) 0.1 mg PO Q4H PRN PRN Reason: Symptoms of alcohol withdrawl Diphenhydramine HCl (Benadryl) 50 mg PO Q6 PRN PRN Reason: Extra Pyramidal Symptoms Escitalopram Oxalate (Lexapro) 20 mg PO DAILY [facility] Last Admin: 11/12/17 09:40 Dose: 20 mg Gabapentin (Neurontin) 400 mg PO TID [facility] Last Admin: 11/12/17 13:50 Dose: 400 mg Guaifenesin (Robitussin) 200 mg PO Q4H PRN PRN Reason: Cough and congestion Last Admin: 05/02/18 09:25 Dose: 200 mg Hydroxyzine HCl (Atarax) 50 mg PO Q6 PRN PRN Reason: Anxiety Last Admin: 11/05/17 15:38 Dose: 50 mg Loperamide HCl (Imodium) 2 mg PO Q6 PRN PRN Reason: Diarrhea Last Admin: 11/11/17 12:09 Dose: 2 mg Methylprednisolone (Solu-Medrol) 60 mg IVP Q8H [facility] Last Admin: 11/12/17 14:38 Dose: 60 mg Pneumococcal Polyvalent Vaccine (Pneumovax 23 Vaccine) 0.5 ml IM .ONCE ONE Stop: 11/13/17 11:01 Quetiapine Fumarate (Seroquel) 100 mg PO HS [facility] Last Admin: 11/11/17 22:46 Dose: 100 mg Quetiapine Fumarate (Seroquel) 50 mg PO TID [facility] Last Admin: 11/12/17 13:50 Dose: 50 mg Trazodone HCl (Desyrel) 100 mg PO HS PRN PRN Reason: Insomnia Last Admin: 11/05/17 21:17 Dose: 100 mg Results - Vital Signs Recent Vital Signs: Last Vital Signs Temp 97.7 F 11/12/17 16:19 Pulse 109 H 11/12/17 16:19 Resp 20 11/12/17 16:19 BP 131/82 11/12/17 16:19 Pulse Ox 95 11/12/17 16:19 - Labs Result Diagrams: 11/12/17 06:56 11/12/17 06:56 Labs: Laboratory Results - last 24 hr 11/11/17 11/11/17 11/11/17 20:20 22:47 22:47 WBC 13.7 H RBC 4.80 Hgb 14.9 Hct 42.8 MCV 89.2 MCH 31.0 MCHC 34.8 RDW 12.8 Plt Count 335 MPV 7.0 L Neut % (Auto) 89.6 H Lymph % (Auto) 5.9 L [place] % (Auto) 3.4 Eos % (Auto) 0.8 Baso % (Auto) 0.3 Neut # (Auto) 12.3 H Lymph # (Auto) 0.8 L [place] # (Auto) 0.5 Eos # (Auto) 0.1 Baso # (Auto) 0.0 Neutrophils % (Manual) 81 H Band Neutrophils % 8 H Lymphocytes % (Manual) 6 L Monocytes % (Manual) 4 Eosinophils % (Manual) 1 Platelet Estimate Normal RBC Morphology Microcytosis (manual) Slight Puncture Site Rradial pCO2 34 L pO2 105 H HCO3 25.6 ABG pH 7.46 H ABG Total CO2 25.2 ABG O2 Saturation 99.3 H ABG Base Excess 0.8 Surinder Test Pos ABG Potassium 3.2 L A-a O2 Difference 2.0 Respiratory Index 0 Sodium 139.0 142 Chloride 107.0 99 Glucose 93 Lactate 1.5 FiO2 21.0 Potassium 3.5 L Carbon Dioxide 24 Anion Gap 22 H BUN 20 Creatinine 0.8 Est GFR ( Amer) > 60 Est GFR (Non-Af Amer) > 60 Random Glucose 147 H Calcium 9.7 Phosphorus 3.3 Magnesium 2.1 Total Bilirubin 1.6 H AST 29 ALT 15 L Alkaline Phosphatase 67 Total Protein 8.5 H Albumin 4.7 Globulin 3.8 Albumin/Globulin Ratio 1.2 Arterial Blood Potassium 3.2 L 11/12/17 11/12/17 06:56 06:56 WBC 7.1 RBC 4.29 L Hgb 13.2 Hct 38.2 MCV 89.1 MCH 30.9 MCHC 34.6 RDW 13.0 Plt Count 322 MPV 7.5 Neut % (Auto) 95.3 H Lymph % (Auto) 3.5 L [place] % (Auto) 1.1 Eos % (Auto) 0.0 Baso % (Auto) 0.1 Neut # (Auto) 6.7 Lymph # (Auto) 0.2 L [place] # (Auto) 0.1 Eos # (Auto) 0.0 Baso # (Auto) 0.0 Neutrophils % (Manual) 98 H Band Neutrophils % Lymphocytes % (Manual) 2 L Monocytes % (Manual) TEST NOT PERFORMED Eosinophils % (Manual) Platelet Estimate Normal RBC Morphology Normal Microcytosis (manual) Puncture Site pCO2 pO2 HCO3 ABG pH ABG Total CO2 ABG O2 Saturation ABG Base Excess Surinder Test ABG Potassium A-a O2 Difference Respiratory Index Sodium 139 Chloride 101 Glucose Lactate FiO2 Potassium 4.6 Carbon Dioxide 17 L Anion Gap 25 H BUN 22 H Creatinine 0.8 Est GFR ( Amer) > 60 Est GFR (Non-Af Amer) > 60 Random Glucose 164 H Calcium 9.5 Phosphorus 3.5 Magnesium 2.2 Total Bilirubin 1.2 AST 35 ALT < 6 L D Alkaline Phosphatase 57 Total Protein 7.4 Albumin 4.2 Globulin 3.2 Albumin/Globulin Ratio 1.3 Arterial Blood Potassium
[2017-11-13] MEDS: Albuterol-Ipratrop 3 mg / 0.5 (3 ml) UD INH SCH ×3 (03:25→10:56)
[2017-11-13] MEDS: MethylPREDNISolone 40 mg Vial IVP SCH ×3 (06:28→21:00)
[2017-11-13] MEDS: guaiFENesin 100 mg/5 ml Syrup UD PO PRN (06:31)
--- NOTE | 2017-11-13 08:45 | CP.PCM.PN ---
<Angel Quinn - Last Filed: 11/13/17 09:05> Subjective - Date & Time of Evaluation Date of Evaluation: 11/13/17 Time of Evaluation: 08:42 - Subjective Subjective: Patient seen and examined at bedside Breathng much improved patient states SOB resolving Pain controlled Denies chest pain Objective - Vital Signs/Intake and Output Vital Signs (last 24 hours): Temp Pulse Resp BP Pulse Ox 97.2 F L 81 20 113/68 94 L 11/12/17 23:20 11/13/17 04:13 11/12/17 23:20 11/12/17 23:20 11/12/17 23:20 Intake and Output: 11/13/17 11/13/17 06:59 18:59 Intake Total 360 Balance 360 - Medications Medications: Current Medications Albuterol/Ipratropium (Duoneb 3 Mg/0.5 Mg (3 Ml) Ud) 3 ml INH RQ4 [facility] Last Admin: 11/13/17 07:50 Dose: 3 ml Benzocaine/Menthol (Cepacol Sore Throat) 1 mandi MT Q4H PRN PRN Reason: Sore Throat Last Admin: 11/10/17 13:12 Dose: 1 mandi Benztropine Mesylate (Cogentin) 2 mg PO Q6 PRN PRN Reason: Extra Pyramidal Symptoms Chlordiazepoxide (Librium) 25 mg PO Q4H PRN PRN Reason: Alcohol Withdrawal Last Admin: 11/13/17 06:31 Dose: 25 mg Clonidine HCl (Catapres) 0.1 mg PO Q4H PRN PRN Reason: Symptoms of alcohol withdrawl Diphenhydramine HCl (Benadryl) 50 mg PO Q6 PRN PRN Reason: Extra Pyramidal Symptoms Escitalopram Oxalate (Lexapro) 20 mg PO DAILY [facility] Last Admin: 11/12/17 09:40 Dose: 20 mg Gabapentin (Neurontin) 400 mg PO TID [facility] Last Admin: 11/12/17 17:41 Dose: 400 mg Guaifenesin (Robitussin) 200 mg PO Q4H PRN PRN Reason: Cough and congestion Last Admin: 11/13/17 06:31 Dose: 200 mg Hydroxyzine HCl (Atarax) 50 mg PO Q6 PRN PRN Reason: Anxiety Last Admin: 11/05/17 15:38 Dose: 50 mg Loperamide HCl (Imodium) 2 mg PO Q6 PRN PRN Reason: Diarrhea Last Admin: 11/11/17 12:09 Dose: 2 mg Methylprednisolone (Solu-Medrol) 60 mg IVP Q8H [facility] Last Admin: 11/13/17 06:28 Dose: 60 mg Montelukast Sodium (Singulair) 10 mg PO HS [facility] Last Admin: 11/12/17 21:30 Dose: 10 mg Pneumococcal Polyvalent Vaccine (Pneumovax 23 Vaccine) 0.5 ml IM .ONCE ONE Stop: 11/13/17 11:01 Quetiapine Fumarate (Seroquel) 100 mg PO HS [facility] Last Admin: 11/12/17 21:29 Dose: 100 mg Quetiapine Fumarate (Seroquel) 50 mg PO TID [facility] Last Admin: 11/12/17 17:41 Dose: 50 mg Trazodone HCl (Desyrel) 100 mg PO HS PRN PRN Reason: Insomnia Last Admin: 11/05/17 21:17 Dose: 100 mg - Labs Labs: 11/12/17 06:56 11/12/17 06:56 - Constitutional Appears: Well - Head Exam Head Exam: ATRAUMATIC, NORMAL INSPECTION, NORMOCEPHALIC - Eye Exam Eye Exam: EOMI, Normal appearance, PERRL Pupil Exam: NORMAL ACCOMODATION, PERRL - ENT Exam ENT Exam: Mucous Membranes Moist, Normal Exam - Neck Exam Neck Exam: Full ROM, Normal Inspection. absent: Lymphadenopathy - Respiratory Exam Respiratory Exam: Wheezes (Wheezing thru all of expiration, inspiratory wheezing diminished fropm prior exam) - Cardiovascular Exam Cardiovascular Exam: REGULAR RHYTHM, +S1, +S2. absent: Murmur - GI/Abdominal Exam GI & Abdominal Exam: Soft, Normal Bowel Sounds. absent: Tenderness - Extremities Exam Extremities Exam: Full ROM, Normal Capillary Refill, Normal Inspection. absent : Joint Swelling, Pedal Edema - Back Exam Back Exam: NORMAL INSPECTION - Neurological Exam Neurological Exam: Alert, Awake, CN II-XII Intact, Normal Gait, Oriented x3 - Psychiatric Exam Psychiatric exam: Normal Affect, Normal Mood - Skin Skin Exam: Dry, Intact, Normal Color, Warm Assessment and Plan (1) COPD exacerbation Assessment & Plan: Pulm ([place]) Duonebs Q4 Solumedrol 60 IV Q8H Singulair 10 PO HS BiPAP as needed 06/18 @ 30% Status: Acute (2) URI (upper respiratory infection) Assessment & Plan: Robitussin/Claritin for symptomatic relief Benzocaine mandi as needed for sore throat Status: Acute (3) Major depressive disorder, recurrent severe without psychotic features Assessment & Plan: Lexapro Seroquel Trazodone Status: Acute (4) Opioid use disorder, severe, dependence Assessment & Plan: Methadone taper completed Congentin for w/d tremors Clonidine PRN for w/s symptoms Benadryl/atarax Gabapentin imodium Status: Acute (5) Sedative, hypnotic or anxiolytic use disorder, severe, dependence Assessment & Plan: Librium taper Status: Acute (6) Prophylactic measure Assessment & Plan: Lovenox 40 SC QD SCD No GI PPX indicated at this time Status: Acute <Gera Beltran - Last Filed: 11/13/17 19:37> Objective - Vital Signs/Intake and Output Vital Signs (last 24 hours): Temp Pulse Resp BP Pulse Ox 97.8 F 96 H 20 131/80 100 11/13/17 15:00 11/13/17 18:00 11/13/17 15:00 11/13/17 15:00 11/13/17 15:00 Intake and Output: 11/13/17 11/14/17 18:59 06:59 Intake Total 240 Balance 240 - Medications Medications: Current Medications Albuterol/Ipratropium (Duoneb 3 Mg/0.5 Mg (3 Ml) Ud) 3 ml INH RQ6 PRN PRN Reason: Shortness of Breath Benzocaine/Menthol (Cepacol Sore Throat) 1 mandi MT Q4H PRN PRN Reason: Sore Throat Last Admin: 11/10/17 13:12 Dose: 1 mandi Benztropine Mesylate (Cogentin) 2 mg PO Q6 PRN PRN Reason: Extra Pyramidal Symptoms Chlordiazepoxide (Librium) 25 mg PO Q4H PRN PRN Reason: Alcohol Withdrawal Last Admin: 11/13/17 12:34 Dose: 25 mg Clonidine HCl (Catapres) 0.1 mg PO Q4H PRN PRN Reason: Symptoms of alcohol withdrawl Diphenhydramine HCl (Benadryl) 50 mg PO Q6 PRN PRN Reason: Extra Pyramidal Symptoms Enoxaparin Sodium (Lovenox) 40 mg SC DAILY [facility] Last Admin: 11/13/17 09:46 Dose: Not Given Escitalopram Oxalate (Lexapro) 20 mg PO DAILY [facility] Last Admin: 11/13/17 09:45 Dose: 20 mg Gabapentin (Neurontin) 400 mg PO TID [facility] Last Admin: 11/13/17 17:48 Dose: 400 mg Guaifenesin (Robitussin) 200 mg PO Q4H PRN PRN Reason: Cough and congestion Last Admin: 11/13/17 06:31 Dose: 200 mg Hydroxyzine HCl (Atarax) 50 mg PO Q6 PRN PRN Reason: Anxiety Last Admin: 11/05/17 15:38 Dose: 50 mg Loperamide HCl (Imodium) 2 mg PO Q6 PRN PRN Reason: Diarrhea Last Admin: 11/11/17 12:09 Dose: 2 mg Loratadine (Claritin) 10 mg PO DAILY [facility] Last Admin: 11/13/17 09:44 Dose: 10 mg Methylprednisolone (Solu-Medrol) 40 mg IVP Q8H [facility] Last Admin: 11/13/17 12:35 Dose: 40 mg Montelukast Sodium (Singulair) 10 mg PO HS [facility] Last Admin: 11/12/17 21:30 Dose: 10 mg Quetiapine Fumarate (Seroquel) 100 mg PO HS [facility] Last Admin: 11/12/17 21:29 Dose: 100 mg Quetiapine Fumarate (Seroquel) 50 mg PO TID [facility] Last Admin: 11/13/17 17:48 Dose: 50 mg Trazodone HCl (Desyrel) 100 mg PO HS PRN PRN Reason: Insomnia Last Admin: 11/05/17 21:17 Dose: 100 mg - Labs Labs: 11/13/17 11:16 11/13/17 11:16 Attending/Attestation - Attestation I have personally seen and examined this patient.: Yes I have fully participated in the care of the patient.: Yes I have reviewed all pertinent clinical information, including history, physical exam and plan: Yes Notes (Text): 11/13/17 19:28 Patient seen and examined at 11:45 AM Exam, assessment and plan gone over with resident Also on ROS: Wheezing, cough, SOB much improved NO other complaints upon FULL ROS Also on Exam: Diffuse rhonchi with scattered expiratory wheezes Please note the following: Solumedrol decreased to 40 mg IV Q8H He will likely need to be on daily Prednisone after steroid taper until follow up with Pulmonology as an outpatient Gera Beltran D.O.
[2017-11-13] MEDS: Enoxaparin 40 mg Syringe SC SCH ×2 (09:45→09:46)
[2017-11-13] MEDS ORDERED: Pneumococcal 23-Valent Vaccine IM ONE (11:00)
[2017-11-13 11:23] LABS: BASO % 0.1 % (0.0-2.0); HEMOGLOBIN 13.9 g/dL (12.0-18.0); LYMPH # 0.3 K/uL (1.0-4.3); MEAN CELL VOLUME 89.1 fL (80.0-94.0); MEAN CORPUSCULAR HEMOGLOBIN 30.4 pg (27.0-31.0); MEAN CORPUSCULAR HGB CONC 34.2 g/dL (33.0-37.0); MEAN PLATELET VOLUME 7.8 fL (7.2-11.7); MONO # 0.3 K/uL (0.0-0.8); MONO % 2.9 % (0.0-10.0); NEUT # 10.6 K/uL (1.8-7.0); PLATELET COUNT 343 K/uL (130-400); RBC 4.56 Mil/uL (4.40-5.90); RED CELL DISTRIBUTION WIDTH 13.3 % (11.5-14.5)
[2017-11-13 11:24] LABS: WHITE BLOOD COUNT 11.3 K/uL (4.8-10.8)
[2017-11-13 11:42] LABS: ALB/GLOB RATIO 1.1 (1.0-2.1); ALBUMIN 4.2 g/dL (3.5-5.0); ALT/SGPT 8 U/L (21-72); AST/SGOT 25 U/L (17-59); BLOOD UREA NITROGEN 23 mg/dL (9-20); CALCIUM 9.9 mg/dl (8.6-10.4); GFR AFRICAN-AMERICAN > 60; GFR NON-AFRICAN AMERICAN > 60
[2017-11-13 12:12] LABS: LYMPHOCYTE 4 % (20-40); MONOCYTE 3 % (0-10); NEUTROPHIL 93 % (50-75); PLATELET ESTIMATE NORMAL (NORMAL); TOTAL CELLS COUNTED 100
--- NOTE | 2017-11-13 14:55 | PCM.PYCHPN ---
Psychiatric Progress Note - Psychiatric Progress Note Patient seen today, length of contact: 15 min Patient Chief Complaint: "I'm better" Problems Identified/Issues Discussed: The pt is seen, chart reviewed, case discussed with staff. Support given, CBT and SD used briefly No SEs from medications, risks discussed. Not suicidal After care discussed Pt will no longer be going to [facility] after his hospital stay Pt appeared to be doing better today Psych will sign off Medication Change: Yes Medical Record Reviewed: Yes Mental Status Examination - Cognitive Function Orientation: Person, Place, Situation, Time Memory: Intact Attention: Poor Concentration: Poor Association: WNL Fund of Knowledge: WNL - Mood Mood: Depressed - Affect Affect: Constricted - Speech Speech: Soft - Formal Thought Process Formal Thought Process: No Impairment - Suicidal Ideation Suicidal Ideation: No - Homicidal Ideation Homicidal Ideation: No Goal/Treatment Plan - Goal/Treatment Plan Need for Continued Stay: Severe depression anxiety, Discharge may exacerbated symptoms, Severe functional impairment Progress Toward Problem(s) and Goals/Treatment Plan: Continue Lexapro for depression Gabapentin too Support and psychoeducation daily Attend groups and activities daily After care planning by DONNIE, interested in going to [facility] Estimated Date of D/C: 11/13/17
--- NOTE | 2017-11-13 17:41 | CP.PCM.PN ---
Subjective - Date & Time of Evaluation Date of Evaluation: 11/13/17 Time of Evaluation: 10:00 - Subjective Subjective: the patient seen and examined Still complaining of shortness of breath and wheezing denies any chest pain Objective - Vital Signs/Intake and Output Vital Signs (last 24 hours): Temp Pulse Resp BP Pulse Ox 97.8 F 84 20 131/80 100 11/13/17 15:00 11/13/17 15:00 11/13/17 15:00 11/13/17 15:00 11/13/17 15:00 Intake and Output: 11/13/17 11/13/17 06:59 18:59 Intake Total 360 240 Balance 360 240 - Medications Medications: Current Medications Albuterol/Ipratropium (Duoneb 3 Mg/0.5 Mg (3 Ml) Ud) 3 ml INH RQ6 PRN PRN Reason: Shortness of Breath Benzocaine/Menthol (Cepacol Sore Throat) 1 mandi MT Q4H PRN PRN Reason: Sore Throat Last Admin: 11/10/17 13:12 Dose: 1 mandi Benztropine Mesylate (Cogentin) 2 mg PO Q6 PRN PRN Reason: Extra Pyramidal Symptoms Chlordiazepoxide (Librium) 25 mg PO Q4H PRN PRN Reason: Alcohol Withdrawal Last Admin: 11/13/17 12:34 Dose: 25 mg Clonidine HCl (Catapres) 0.1 mg PO Q4H PRN PRN Reason: Symptoms of alcohol withdrawl Diphenhydramine HCl (Benadryl) 50 mg PO Q6 PRN PRN Reason: Extra Pyramidal Symptoms Enoxaparin Sodium (Lovenox) 40 mg SC DAILY [facility] Last Admin: 11/13/17 09:46 Dose: Not Given Escitalopram Oxalate (Lexapro) 20 mg PO DAILY [facility] Last Admin: 11/13/17 09:45 Dose: 20 mg Gabapentin (Neurontin) 400 mg PO TID [facility] Last Admin: 11/13/17 14:10 Dose: 400 mg Guaifenesin (Robitussin) 200 mg PO Q4H PRN PRN Reason: Cough and congestion Last Admin: 11/13/17 06:31 Dose: 200 mg Hydroxyzine HCl (Atarax) 50 mg PO Q6 PRN PRN Reason: Anxiety Last Admin: 11/05/17 15:38 Dose: 50 mg Loperamide HCl (Imodium) 2 mg PO Q6 PRN PRN Reason: Diarrhea Last Admin: 11/11/17 12:09 Dose: 2 mg Loratadine (Claritin) 10 mg PO DAILY [facility] Last Admin: 11/13/17 09:44 Dose: 10 mg Methylprednisolone (Solu-Medrol) 40 mg IVP Q8H THOM Last Admin: 11/13/17 12:35 Dose: 40 mg Montelukast Sodium (Singulair) 10 mg PO HS THOM Last Admin: 11/12/17 21:30 Dose: 10 mg Quetiapine Fumarate (Seroquel) 100 mg PO HS THOM Last Admin: 11/12/17 21:29 Dose: 100 mg Quetiapine Fumarate (Seroquel) 50 mg PO TID [facility] Last Admin: 11/13/17 14:10 Dose: 50 mg Trazodone HCl (Desyrel) 100 mg PO HS PRN PRN Reason: Insomnia Last Admin: 11/05/17 21:17 Dose: 100 mg - Labs Labs: 11/13/17 11:16 11/13/17 11:16 - Head Exam Head Exam: ATRAUMATIC, NORMOCEPHALIC - Eye Exam Eye Exam: Normal appearance - ENT Exam ENT Exam: Mucous Membranes Moist - Neck Exam Neck Exam: Normal Inspection - Respiratory Exam Respiratory Exam: Rhonchi, Wheezes - Cardiovascular Exam Cardiovascular Exam: REGULAR RHYTHM - GI/Abdominal Exam GI & Abdominal Exam: Soft, Normal Bowel Sounds Assessment and Plan (1) COPD exacerbation Assessment & Plan: with asthmatic component Awaiting for IgE results Patient has 2 cats continue steroids, Nebulizer treatment Status: Acute (2) Opioid use disorder, severe, dependence Status: Acute (3) Asthma Status: Acute
[2017-11-13] MEDS: Albuterol-Ipratrop 3 mg / 0.5 (3 ml) UD INH PRN (19:37)
[2017-11-14 01:41] VITALS: O2SAT 95
[2017-11-14] MEDS: MethylPREDNISolone 40 mg Vial IVP SCH ×2 (05:16→12:35)
[2017-11-14] MEDS: Albuterol-Ipratrop 3 mg / 0.5 (3 ml) UD INH PRN ×2 (07:30→13:05)
[2017-11-14] MEDS: Enoxaparin 40 mg Syringe SC SCH (09:26)
--- NOTE | 2017-11-14 12:37 | CP.PCM.PN ---
Subjective - Date & Time of Evaluation Date of Evaluation: 11/14/17 Time of Evaluation: 08:45 - Subjective Subjective: Patient was seen and examined at bedside resting comfortably without supplemental oxygen. No acute events overnight. He states that he slept well but still feels and sounds congestive with a productive cough. Assessment and Plan: 1. COPD Exacerbation - Saturating 95-100% on 2L NC - ABG 11/11: 7.46/34/105/25.6 - CXR 11/11: hyperinflated lungs, no focal infiltrate or effusion, bilateral hilar prominence - duoneb - solumedrol 60mg Q8h - singulair - BiPAP 06/18 FiO2 30% -IGE level Objective - Vital Signs/Intake and Output Vital Signs (last 24 hours): Temp Pulse Resp BP Pulse Ox 97.8 F 66 18 148/81 95 11/14/17 08:11 11/14/17 08:11 11/14/17 08:11 11/14/17 08:11 11/14/17 08:11 - Medications Medications: Current Medications Albuterol/Ipratropium (Duoneb 3 Mg/0.5 Mg (3 Ml) Ud) 3 ml INH RQ6 PRN PRN Reason: Shortness of Breath Last Admin: 11/14/17 07:30 Dose: 3 ml Benzocaine/Menthol (Cepacol Sore Throat) 1 mandi MT Q4H PRN PRN Reason: Sore Throat Last Admin: 11/10/17 13:12 Dose: 1 mandi Benztropine Mesylate (Cogentin) 2 mg PO Q6 PRN PRN Reason: Extra Pyramidal Symptoms Chlordiazepoxide (Librium) 25 mg PO Q4H PRN PRN Reason: Alcohol Withdrawal Last Admin: 11/14/17 07:03 Dose: 25 mg Clonidine HCl (Catapres) 0.1 mg PO Q4H PRN PRN Reason: Symptoms of alcohol withdrawl Diphenhydramine HCl (Benadryl) 50 mg PO Q6 PRN PRN Reason: Extra Pyramidal Symptoms Enoxaparin Sodium (Lovenox) 40 mg SC DAILY [facility] Last Admin: 11/14/17 09:26 Dose: Not Given Escitalopram Oxalate (Lexapro) 20 mg PO DAILY [facility] Last Admin: 11/14/17 09:24 Dose: 20 mg Gabapentin (Neurontin) 400 mg PO TID [facility] Last Admin: 11/14/17 09:24 Dose: 400 mg Guaifenesin (Robitussin) 200 mg PO Q4H PRN PRN Reason: Cough and congestion Last Admin: 11/13/17 06:31 Dose: 200 mg Hydroxyzine HCl (Atarax) 50 mg PO Q6 PRN PRN Reason: Anxiety Last Admin: 11/14/17 09:24 Dose: 50 mg Loperamide HCl (Imodium) 2 mg PO Q6 PRN PRN Reason: Diarrhea Last Admin: 11/11/17 12:09 Dose: 2 mg Loratadine (Claritin) 10 mg PO DAILY [facility] Last Admin: 11/14/17 09:43 Dose: 10 mg Methylprednisolone (Solu-Medrol) 40 mg IVP Q8H [facility] Last Admin: 11/14/17 12:35 Dose: 40 mg Montelukast Sodium (Singulair) 10 mg PO HS [facility] Last Admin: 11/13/17 21:17 Dose: 10 mg Quetiapine Fumarate (Seroquel) 100 mg PO HS [facility] Last Admin: 11/13/17 21:17 Dose: 100 mg Quetiapine Fumarate (Seroquel) 50 mg PO TID [facility] Last Admin: 11/14/17 09:24 Dose: 50 mg Trazodone HCl (Desyrel) 100 mg PO HS PRN PRN Reason: Insomnia Last Admin: 11/05/17 21:17 Dose: 100 mg - Labs Labs: 11/13/17 11:16 11/13/17 11:16 Assessment and Plan (1) COPD exacerbation Status: Acute (2) Opioid use disorder, severe, dependence Status: Acute (3) Asthma Status: Acute
--- NOTE | 2017-11-14 15:44 | CP.PCM.DIS ---
<Geovanni Flaherty E - Last Filed: 11/14/17 16:18> Provider - Provider Date of Admission: 10/29/17 00:00 Attending physician: Arcenio Apple MD Time Spent in preparation of Discharge (in minutes): 35 Hospital Course - Lab Results Lab Results: Most Recent Lab Values WBC 11.3 K/uL (4.8-10.8) H D 11/13/17 11:16 RBC 4.56 Mil/uL (4.40-5.90) 11/13/17 11:16 Hgb 13.9 g/dL (12.0-18.0) 11/13/17 11:16 Hct 40.6 % (35.0-51.0) 11/13/17 11:16 MCV 89.1 fL (80.0-94.0) 11/13/17 11:16 MCH 30.4 pg (27.0-31.0) 11/13/17 11:16 MCHC 34.2 g/dL (33.0-37.0) 11/13/17 11:16 RDW 13.3 % (11.5-14.5) 11/13/17 11:16 Plt Count 343 K/uL (130-400) 11/13/17 11:16 MPV 7.8 fL (7.2-11.7) 11/13/17 11:16 Neut % (Auto) 94.0 % (50.0-75.0) H 11/13/17 11:16 Lymph % (Auto) 3.0 % (20.0-40.0) L 11/13/17 11:16 [place] % (Auto) 2.9 % (0.0-10.0) 11/13/17 11:16 Eos % (Auto) 0.0 % (0.0-4.0) 11/13/17 11:16 Baso % (Auto) 0.1 % (0.0-2.0) 11/13/17 11:16 Neut # (Auto) 10.6 K/uL (1.8-7.0) H 11/13/17 11:16 Lymph # (Auto) 0.3 K/uL (1.0-4.3) L 11/13/17 11:16 [place] # (Auto) 0.3 K/uL (0.0-0.8) 11/13/17 11:16 Eos # (Auto) 0.0 K/uL (0.0-0.7) 11/13/17 11:16 Baso # (Auto) 0.0 K/uL (0.0-0.2) 11/13/17 11:16 Neutrophils % (Manual) 93 % (50-75) H 11/13/17 11:16 Band Neutrophils % 8 % (0-2) H 11/11/17 22:47 Lymphocytes % (Manual) 4 % (20-40) L 11/13/17 11:16 Monocytes % (Manual) 3 % (0-10) 11/13/17 11:16 Eosinophils % (Manual) 1 % (0-4) 11/11/17 22:47 Platelet Estimate Normal (NORMAL) 11/13/17 11:16 RBC Morphology Normal 11/13/17 11:16 Microcytosis (manual) Slight 11/11/17 22:47 Puncture Site Rradial 11/11/17 20:20 pCO2 34 mm/Hg (35-45) L 11/11/17 20:20 pO2 105 mm/Hg (80-100) H 11/11/17 20:20 HCO3 25.6 mmol/L (21-28) 11/11/17 20:20 ABG pH 7.46 (7.35-7.45) H 11/11/17 20:20 ABG Total CO2 25.2 mmol/L (22-28) 11/11/17 20:20 ABG O2 Saturation 99.3 % (95-98) H 11/11/17 20:20 ABG Base Excess 0.8 mmol/L (-2.0-3.0) 11/11/17 20:20 Surinder Test Pos 11/11/17 20:20 ABG Potassium 3.2 mmol/L (3.6-5.2) L 11/11/17 20:20 A-a O2 Difference 2.0 mm/Hg 11/11/17 20:20 Respiratory Index 0 11/11/17 20:20 Sodium 139.0 mmol/l (132-148) 11/11/17 20:20 Chloride 107.0 mmol/L (98-107) 11/11/17 20:20 Glucose 93 mg/dl (75-110) 11/11/17 20:20 Lactate 1.5 mmol/L (0.7-2.1) 11/11/17 20:20 FiO2 21.0 % 11/11/17 20:20 Sodium 143 mmol/L (132-148) 11/13/17 11:16 Potassium 4.1 mmol/L (3.6-5.2) 11/13/17 11:16 Chloride 104 mmol/L (98-107) 11/13/17 11:16 Carbon Dioxide 23 mmol/L (22-30) 11/13/17 11:16 Anion Gap 20 (10-20) 11/13/17 11:16 BUN 23 mg/dL (9-20) H 11/13/17 11:16 Creatinine 0.7 mg/dL (0.8-1.5) L 11/13/17 11:16 Est GFR ( Amer) > 60 11/13/17 11:16 Est GFR (Non-Af Amer) > 60 11/13/17 11:16 Random Glucose 135 mg/dL (75-110) H 11/13/17 11:16 Calcium 9.9 mg/dl (8.6-10.4) 11/13/17 11:16 Phosphorus 2.3 mg/dL (2.5-4.5) L 11/13/17 11:16 Magnesium 2.1 mg/dL (1.6-2.3) 11/13/17 11:16 Total Bilirubin 1.4 mg/dL (0.2-1.3) H 11/13/17 11:16 AST 25 U/L (17-59) 11/13/17 11:16 ALT 8 U/L (21-72) L D 11/13/17 11:16 Alkaline Phosphatase 58 U/L (38-126) 11/13/17 11:16 Total Protein 7.9 g/dL (6.3-8.3) 11/13/17 11:16 Albumin 4.2 g/dL (3.5-5.0) 11/13/17 11:16 Globulin 3.7 gm/dL (2.2-3.9) 11/13/17 11:16 Albumin/Globulin Ratio 1.1 (1.0-2.1) 11/13/17 11:16 Arterial Blood Potassium 3.2 mmol/L (3.6-5.2) L 11/11/17 20:20 IgE 183 kU/L (<pv=114) H 11/13/17 06:45 - Hospital Course Hospital Course: HPI (As per admission) This patient is a 47yo M who was admitted for depression and suicidal ideation who also has a hx of COPD; intubated more than 6 times in the past, most recently 6 months ago. It has never been difficult for him to get off of the respirator. He states that he has a nonproductive cough, no sputum, no fevers/ chills, WATKINS, chest pain, abdominal pain, N/V/D, dysuria/freq/urg, or lower extremity pain. Of note; patient is extremely short of breath on non rebreather at 10L RA with duonebs; tri-poding, red, and tired. Hospital Course: Patient was admitted to medicine service with the consideration of COPD Exacerbation from psychiatry admission. Patient's symptoms was managed with appropriate medications. Operations Mgr, Dr. Hanley was consulted with agreed with medical management as per primary team. Over the course of admission, Psychiatrist, Dr. Espinal continued to monitor for suicidal ideation and depression. As per documentation by psychiatrist based on patient encounter on , patient was deemed not suicidal and stable. Over the course of admission , patient remained stable with no acute issues. On the day of discharge, patient walked around the hallway with pulse ox for approximately 6 minutes; patient maintained an oxygen saturation of 91% and 93-94% post walk without any acute symptoms or shortness of breath. Upon discharge, patient was deemed cleared by medicine team, ham sawyer and psychiatry. Patient was discharge with appropriate medications and instructions. Pertinent imaging: Chest X-ray (11/11/17): No focal infiltrate or effusion. This is a brief summary of events. For a complete course, please refer to the medical record. Discharge Exam - Head Exam Head Exam: ATRAUMATIC, NORMOCEPHALIC - Eye Exam Eye Exam: EOMI, Normal appearance - ENT Exam ENT Exam: Mucous Membranes Moist - Respiratory Exam Respiratory Exam: Clear to PA & Lateral, NORMAL BREATHING PATTERN Additional comments: CTA, when patient breathes in through his nose - Cardiovascular Exam Cardiovascular Exam: REGULAR RHYTHM, +S1, +S2 - GI/Abdominal Exam GI & Abdominal Exam: Normal Bowel Sounds, Soft. absent: Diminished Bowel Sounds , Distended, Firm, Guarding, Tenderness - Extremities Exam Extremities exam: normal inspection - Neurological Exam Neurological exam: Alert, CN II-XII Intact, Normal Gait, Oriented x3 - Psychiatric Exam Psychiatric exam: Normal Affect, Normal Mood - Skin Skin Exam: Normal Color Discharge Plan - Discharge Medications Prescriptions: Albuterol Sulfate [Proair Respiclick] 90 mcg IH Q6 PRN #1 [email or web address] PRN Reason: Shortness Of Breath Escitalopram [Lexapro] 20 mg PO DAILY 30 Days #30 tab Fluticasone/Salmeterol 250/50 [Advair Diskus] 1 puff IH Q12 30 Days #1 puff Gabapentin 400 mg PO TID 30 Days #90 capsule hydrOXYzine HCl [Atarax] 50 mg PO Q6H PRN 30 Days #30 tab PRN Reason: Anxiety Montelukast [Singulair] 10 mg PO HS 30 Days #30 tab QUEtiapine [SEROquel] 100 mg PO HS 30 Days #30 tab Quetiapine Fumarate [Seroquel] 50 mg PO TID 30 Days #90 tablet traZODone [Desyrel] 100 mg PO HS 30 Days #30 tab - Follow Up Plan Condition: GOOD Disposition: HOME/ ROUTINE Instructions: Depression, Adult (DC), Drug Abuse and Drug Addiction (DC), Exacerbation of COPD (DC), Bacterial Upper Respiratory Infection, Adult (DC), Albuterol, Escitalopram, Fluticasone and Salmeterol, Gabapentin, Hydroxyzine, Montelukast, Quetiapine, Trazodone Additional Instructions: Please discharge patient home Please take the following medications: 1. Prednisone 10mg Taper: - 5 tablets by mouth, once times/day (11/15/17) - 4 tablets by mouth, once times/day (11/16/17) -3 tablets by mouth, once times/day (11/17/17) -2 tablets by mouth, once times/day (11/18/17) -1 tablet by mouth once (11/19/17) 2. Lexapro 20mg PO daily (at breakfast) 3. Gabapentin 400mg PO TID (7am, 1pm, 7pm) 4. Hydroxyzine 50mg PO Q6H as needed for anxiety 5. Singulair 10mg PO HS ( Bedtime) 6. Seroquel 50mg PO TID (7am, 1pm, 7pm) 7. Seroquel 100mg PO HS (Bedtime) 8. Trazadone 100mg PO HS PRN for insomnia 9. Advair 250/50mg 1 puff inhalation by mouth twicw daily ( Breakfast and dinner time) 10. Albuterol 90mcg 2 puff inhalation by mouth Q6H PRN for shortness of breath Please follow up with your PMD in [facility] as soon as possible to help coordinate care Please obtain a referral for a psychiatrist from your PMD Please obtain a referral for a Pulmonology from your PMD Please do not delay in doing the above as we have only provided you with 30 days supply of your medications Please have your prescriptions filled at your pharmacy Please return to the hospital or nearest ER for severe exacerbation of COPD Please take care <Gera Beltran - Last Filed: 11/14/17 19:31> Provider - Provider Date of Admission: 10/29/17 00:00 Attending physician: Arcenio Apple MD Time Spent in preparation of Discharge (in minutes): 40 Hospital Course - Lab Results Lab Results: Most Recent Lab Values WBC 11.3 K/uL (4.8-10.8) H D 11/13/17 11:16 RBC 4.56 Mil/uL (4.40-5.90) 11/13/17 11:16 Hgb 13.9 g/dL (12.0-18.0) 11/13/17 11:16 Hct 40.6 % (35.0-51.0) 11/13/17 11:16 MCV 89.1 fL (80.0-94.0) 11/13/17 11:16 MCH 30.4 pg (27.0-31.0) 11/13/17 11:16 MCHC 34.2 g/dL (33.0-37.0) 11/13/17 11:16 RDW 13.3 % (11.5-14.5) 11/13/17 11:16 Plt Count 343 K/uL (130-400) 11/13/17 11:16 MPV 7.8 fL (7.2-11.7) 11/13/17 11:16 Neut % (Auto) 94.0 % (50.0-75.0) H 11/13/17 11:16 Lymph % (Auto) 3.0 % (20.0-40.0) L 11/13/17 11:16 [place] % (Auto) 2.9 % (0.0-10.0) 11/13/17 11:16 Eos % (Auto) 0.0 % (0.0-4.0) 11/13/17 11:16 Baso % (Auto) 0.1 % (0.0-2.0) 11/13/17 11:16 Neut # (Auto) 10.6 K/uL (1.8-7.0) H 11/13/17 11:16 Lymph # (Auto) 0.3 K/uL (1.0-4.3) L 11/13/17 11:16 [place] # (Auto) 0.3 K/uL (0.0-0.8) 11/13/17 11:16 Eos # (Auto) 0.0 K/uL (0.0-0.7) 11/13/17 11:16 Baso # (Auto) 0.0 K/uL (0.0-0.2) 11/13/17 11:16 Neutrophils % (Manual) 93 % (50-75) H 11/13/17 11:16 Band Neutrophils % 8 % (0-2) H 11/11/17 22:47 Lymphocytes % (Manual) 4 % (20-40) L 11/13/17 11:16 Monocytes % (Manual) 3 % (0-10) 11/13/17 11:16 Eosinophils % (Manual) 1 % (0-4) 11/11/17 22:47 Platelet Estimate Normal (NORMAL) 11/13/17 11:16 RBC Morphology Normal 11/13/17 11:16 Microcytosis (manual) Slight 11/11/17 22:47 Puncture Site Rradial 11/11/17 20:20 pCO2 34 mm/Hg (35-45) L 11/11/17 20:20 pO2 105 mm/Hg (80-100) H 11/11/17 20:20 HCO3 25.6 mmol/L (21-28) 11/11/17 20:20 ABG pH 7.46 (7.35-7.45) H 11/11/17 20:20 ABG Total CO2 25.2 mmol/L (22-28) 11/11/17 20:20 ABG O2 Saturation 99.3 % (95-98) H 11/11/17 20:20 ABG Base Excess 0.8 mmol/L (-2.0-3.0) 11/11/17 20:20 Surinder Test Pos 11/11/17 20:20 ABG Potassium 3.2 mmol/L (3.6-5.2) L 11/11/17 20:20 A-a O2 Difference 2.0 mm/Hg 11/11/17 20:20 Respiratory Index 0 11/11/17 20:20 Sodium 139.0 mmol/l (132-148) 11/11/17 20:20 Chloride 107.0 mmol/L (98-107) 11/11/17 20:20 Glucose 93 mg/dl (75-110) 11/11/17 20:20 Lactate 1.5 mmol/L (0.7-2.1) 11/11/17 20:20 FiO2 21.0 % 11/11/17 20:20 Sodium 143 mmol/L (132-148) 11/13/17 11:16 Potassium 4.1 mmol/L (3.6-5.2) 11/13/17 11:16 Chloride 104 mmol/L (98-107) 11/13/17 11:16 Carbon Dioxide 23 mmol/L (22-30) 11/13/17 11:16 Anion Gap 20 (10-20) 11/13/17 11:16 BUN 23 mg/dL (9-20) H 11/13/17 11:16 Creatinine 0.7 mg/dL (0.8-1.5) L 11/13/17 11:16 Est GFR ( Amer) > 60 11/13/17 11:16 Est GFR (Non-Af Amer) > 60 11/13/17 11:16 Random Glucose 135 mg/dL (75-110) H 11/13/17 11:16 Calcium 9.9 mg/dl (8.6-10.4) 11/13/17 11:16 Phosphorus 2.3 mg/dL (2.5-4.5) L 11/13/17 11:16 Magnesium 2.1 mg/dL (1.6-2.3) 11/13/17 11:16 Total Bilirubin 1.4 mg/dL (0.2-1.3) H 11/13/17 11:16 AST 25 U/L (17-59) 11/13/17 11:16 ALT 8 U/L (21-72) L D 11/13/17 11:16 Alkaline Phosphatase 58 U/L (38-126) 11/13/17 11:16 Total Protein 7.9 g/dL (6.3-8.3) 11/13/17 11:16 Albumin 4.2 g/dL (3.5-5.0) 11/13/17 11:16 Globulin 3.7 gm/dL (2.2-3.9) 11/13/17 11:16 Albumin/Globulin Ratio 1.1 (1.0-2.1) 11/13/17 11:16 Arterial Blood Potassium 3.2 mmol/L (3.6-5.2) L 11/11/17 20:20 IgE 183 kU/L (<il=483) H 11/13/17 06:45 Attending/Attestation - Attestation I have personally seen and examined this patient.: Yes I have fully participated in the care of the patient.: Yes I have reviewed all pertinent clinical information, including history, physical exam and plan: Yes Notes (Text): 11/14/17 19:29 Patient was seen shortly after resident. Exam, assessment and plan and discharge instructions were gone over with the resident. Spoke with Psychiatrist Dr. Espinal via phone and he has cleared patient from a Psychiatry standpoint and he wanted him to continue current Psychiatry medications. Gera Beltran D.O.
[2017-11-14 16:45] VITALS: BP 125/86; PULSE 79; RESP 20; TEMP 98.2
--- NOTE | 2017-11-17 13:16 | CARD ---
APPROVED REPORT EKG Measurement Heart [id number] [place] [id number] <Conclusion> Normal sinus rhythm with sinus arrhythmia Normal ECG
== END 2017-11-14 18:13 | disposition home or self-care (01) | DRG 430 ==
LOC: C.ER 23:25 → C.5E 10-29 → C.6T 11-11 20:00
PROVIDERS: ADMIT Internal Medicine; ATTEND Internal Medicine
PROC: HZ2ZZZZ Detoxification Services for Substance Abuse Treatment (ICD-10-PCS; principal; 2017-10-29)
DX: F33.2 Major depressive disorder, recurrent severe without psychotic features (principal); J44.1 Chronic obstructive pulmonary disease with (acute) exacerbation; F11.23 Opioid dependence with withdrawal; F13.239 Sedative, hypnotic or anxiolytic dependence with withdrawal, unspecified; F17.210 Nicotine dependence, cigarettes, uncomplicated; F41.1 Generalized anxiety disorder; G43.909 Migraine, unspecified, not intractable, without status migrainosus; J98.4 Other disorders of lung; Z59.0 Homelessness; G89.29 Other chronic pain